=== PATIENT | male | born 1930 | race Caucasian/White ===

== ENCOUNTER 2016-07-02 12:45 | Inpatient (IN) | payer MEDICARE, BC ==
[~2016-07-02] VITALS: Ht 165.1 cm; Wt 75.9 kg
[2016-07-02] MEDS ORDERED: ATOR40TA29 PO (13:04)
[2016-07-02] MEDS ORDERED: CIPR500T24 PO (13:04)
[2016-07-02] MEDS ORDERED: ALLO300T47 PO (13:04)
[2016-07-02] MEDS ORDERED: PANT40TA2 PO (13:04)
[2016-07-02] MEDS ORDERED: QUET25TA PO (13:04)
[2016-07-02] MEDS ORDERED: DILT240T12 PO (13:04)
[2016-07-02] MEDS ORDERED: FURO-151 PO (13:04)
[2016-07-02] MEDS ORDERED: SERT25TA PO (13:04)
[2016-07-02] MEDS ORDERED: LEVO150T PO (13:04)
[2016-07-02 13:33] LABS: BASOPHILS % (AUTO) 0.4 % (0.0-2.0); EOSINOPHILS # (AUTO) 0.1 K/uL (0.0-0.7); EOSINOPHILS % (AUTO) 1.3 % (0.0-7.0); HEMATOCRIT 46.2 % (40-50); HEMOGLOBIN 15.3 G/DL (14.0-18.0); LYMPHOCYTES # (AUTO) 2.8 K/uL (20.0-40.0); LYMPHOCYTES % (AUTO) 30.7 % (20.5-51.5); MEAN CORPUSCULAR HEMOGLOBIN 29.8 UUG (27.0-31.0); MEAN CORPUSCULAR HGB CONC 33 g/dL (32.0-37.0); MEAN CORPUSCULAR VOLUME 90.2 FL (82.0-92.0); MONOCYTES # (AUTO) 0.7 K/uL (2.0-10.0); MONOCYTES % (AUTO) 7.2 % (0.0-11.0); NEUTROPHILS # (AUTO) 5.5 K/uL (1.8-8.9); NEUTROPHILS % (AUTO) 60.4 % (38.5-71.5); PLATELET COUNT (AUTO) 209 K/UL (150-450); RED BLOOD CELL COUNT(AUTO) 5.12 MIL/UL (4.7-6.1); RED CELL DISTRIBUTION WIDTH 16.5 % (11.5-14.5); WHITE BLOOD COUNT (AUTO) 9.1 K/UL (4.0-11.2)
[2016-07-02 13:36] LABS: CALCIUM 9.1 mg/dL (8.5-10.1); POTASSIUM 3.6 mmol/L (3.5-5.1)
[2016-07-02 13:37] LABS: CREATININE 2.3 mg/dL (0.6-1.3)
[2016-07-02] MEDS ORDERED: ALBUTEROL SULFATE 2.5 MG/3 ML NEBU NEB ONE ×2 (13:45→15:30)
[2016-07-02 13:48] LABS: ALBUMIN 2.9 g/dL (3.4-5.0); BILIRUBIN,DIRECT 0.2 mg/dL (0.0-0.2); BILIRUBIN,TOTAL 0.6 mg/dL (0.2-1.0); TOTAL PROTEIN, SERUM 6.9 g/dL (6.4-8.2)
[2016-07-02 13:53] LABS: LACTIC ACID 2.1 mmol/L (0.4-2.0)
[2016-07-02] MEDS ORDERED: ALBUTEROL SULFATE 2.5 MG/3 ML NEBU ONE ×2 (13:55→15:42)
[2016-07-02 13:59] LABS: TROPONIN I 0.062 ng/mL (0.00-0.056)
[2016-07-02] MEDS ORDERED: IV NORMAL SALINE 1000 ML BAG IV ONE (14:15)
[2016-07-02] MEDS ORDERED: CEFTRIAXONE 1 G in IV DEXTROSE 5% 50 ML IV ONE (14:15)
[2016-07-02] MEDS ORDERED: AZITHROMYCIN IV 500 MG in IV DEXTROSE 5% 250 ML IV ONE (14:15)
[2016-07-02] MEDS ORDERED: PIPERACILLIN SODIUM/TAZOBACTAM 3.375 G in IV DEXTROSE 5% 50 ML IV ONE (14:15)
[2016-07-02] MEDS ORDERED: AZITHROMYCIN 500 MG VIAL IV ONE (14:24)
[2016-07-02] MEDS ORDERED: CEFTRIAXONE 1 G VIAL ONE (14:24)
[2016-07-02] MEDS ORDERED: PIPERACILLIN/TAZOBACTAM/D5W 50 ML IV ONE (14:25)
[2016-07-02 16:29] VITALS: BP 108/61
[2016-07-02] MEDS ORDERED: ACETAMINOPHEN 325 MG TABLET PO PRN (17:45)
[2016-07-02] MEDS ORDERED: ZOLPIDEM 5 MG TABLET PO PRN (17:45)
[2016-07-02] MEDS ORDERED: ONDANSETRON 4 MG/2 ML VIAL IV PRN (17:45)
[2016-07-02] MEDS ORDERED: CEFTRIAXONE 1 G VIAL IM SCH (17:45)
[2016-07-02] MEDS: IPRATROPIUM BROMIDE 0.5 MG/2.5 ML NEBU NEB SCH ×2 (19:30→20:07)
[2016-07-02 20:00] VITALS: BP 110/65
[2016-07-02] MEDS: QUETIAPINE FUMARATE 25 MG TABLET PO SCH ×2 (20:04→20:19)
[2016-07-02] MEDS: ATORVASTATIN 40 MG TABLET PO SCH ×2 (20:04→20:19)
[2016-07-02] MEDS ORDERED: Z GUARD REMEDY PASTE 57 GM TUBE TOP PRN (20:15)
[2016-07-03] VITALS: BP 125/75
[2016-07-03] MEDS: IPRATROPIUM BROMIDE 0.5 MG/2.5 ML NEBU NEB SCH ×4 (01:21→19:30)
[2016-07-03 04:00] VITALS: BP 140/80
[2016-07-03] MEDS: PANTOPRAZOLE SODIUM 40 MG TABLET.DR PO SCH (06:28)
[2016-07-03] MEDS: LEVOTHYROXINE SODIUM 150 MCG TABLET PO SCH (06:28)
[2016-07-03] MEDS: ALLOPURINOL 100 MG TABLET PO SCH (08:52)
[2016-07-03] MEDS: SERTRALINE HCL 50 MG TABLET PO SCH (08:52)
[2016-07-03] MEDS: FUROSEMIDE 40 MG TABLET PO SCH (08:52)
[2016-07-03] MEDS: DILTIAZEM HCL CD 240 MG CAP.SR.24H PO SCH (08:53)
[2016-07-03] MEDS ORDERED: ALLOPURINOL 300 MG TABLET PO SCH (09:00)
[2016-07-03 09:21] LABS: EOSINOPHILS # (AUTO) 0.1 K/uL (0.0-0.7); EOSINOPHILS % (AUTO) 1.2 % (0.0-7.0); HEMATOCRIT 46.1 % (40-50); HEMOGLOBIN 15.1 G/DL (14.0-18.0); LYMPHOCYTES # (AUTO) 2.4 K/uL (20.0-40.0); LYMPHOCYTES % (AUTO) 32.6 % (20.5-51.5); MEAN CORPUSCULAR HEMOGLOBIN 29.8 UUG (27.0-31.0); MEAN CORPUSCULAR HGB CONC 33 g/dL (32.0-37.0); MONOCYTES # (AUTO) 0.4 K/uL (2.0-10.0); MONOCYTES % (AUTO) 5.3 % (0.0-11.0); NEUTROPHILS # (AUTO) 4.6 K/uL (1.8-8.9); NEUTROPHILS % (AUTO) 60.9 % (38.5-71.5); PLATELET COUNT (AUTO) 204 K/UL (150-450); RED BLOOD CELL COUNT(AUTO) 5.07 MIL/UL (4.7-6.1); RED CELL DISTRIBUTION WIDTH 16.5 % (11.5-14.5); WHITE BLOOD COUNT (AUTO) 7.5 K/UL (4.0-11.2)
[2016-07-03 09:27] LABS: ALBUMIN 2.7 g/dL (3.4-5.0); BILIRUBIN,TOTAL 0.5 mg/dL (0.2-1.0); CALCIUM 8.5 mg/dL (8.5-10.1); MAGNESIUM 1.7 mg/dL (1.8-2.4); PHOSPHOROUS 3.1 mg/dL (2.5-4.9); POTASSIUM 3.4 mmol/L (3.5-5.1); TOTAL PROTEIN, SERUM 6.6 g/dL (6.4-8.2)
[2016-07-03 09:28] LABS: CREATININE 1.9 mg/dL (0.6-1.3)
[2016-07-03] MEDS: APIXABAN 5 MG TABLET PO SCH ×2 (09:54→17:52)
[2016-07-03 11:50] LABS: *BILIRUBIN,URIN NEGATIVE (NEGATIVE); *BLOOD, URINE NEGATIVE (NEGATIVE); *CLARITY,URINE CLEAR (CLEAR); *COLOR,URINE YELLOW (YELLOW); *KETONES,URINE NEGATIVE (NEGATIVE); *PROTEIN,URINE 2+ (NEGATIVE); LEUKOCYTE ESTERASE ,URINE NEGATIVE (NEGATIVE); NITRITE, URINE NEGATIVE (NEGATIVE); PH,URINE 5.5 (5.0-8.0); UGLUCOSE NEGATIVE (NEGATIVE)
[2016-07-03 11:56] LABS: *CREATININE,URINE 72.7 mg/dL (30-125); *URINE TOTAL PROTEIN RANDOM 54.8 mg/dL (<150/24HR)
[2016-07-03 11:57] LABS: BACTERIA,URINE FEW /HPF (NONE SEEN); RBC,URINE NONE SEEN /HPF (0-3); SQUAMOUS EPITHELIAL CELL,UR FEW /HPF (NONE SEEN); WBC,URINE 0-3 /HPF (0-3)
[2016-07-03 12:02] VITALS: BP 110/66
[2016-07-03] MEDS: CEFTRIAXONE 1 G in IV DEXTROSE 5% 50 ML IV SCH (14:10)
[2016-07-03] MEDS: AZITHROMYCIN IV 500 MG in IV DEXTROSE 5% 250 ML IV SCH (15:21)
[2016-07-03 15:30] VITALS: BP 122/69
[2016-07-03] MEDS ORDERED: RIVAROXABAN 15 MG TABLET PO SCH (18:00)
[2016-07-03 20:16] VITALS: BP 122/68
[2016-07-03] MEDS: ATORVASTATIN 40 MG TABLET PO SCH (20:23)
[2016-07-03] MEDS: LACTOBACILLUS RHAMNOSUS GG 1 EACH CAPSULE PO SCH (20:23)
[2016-07-03] MEDS: QUETIAPINE FUMARATE 25 MG TABLET PO SCH (20:24)
[2016-07-04] MEDS: IPRATROPIUM BROMIDE 0.5 MG/2.5 ML NEBU NEB SCH ×4 (01:27→18:30)
[2016-07-04 04:00] VITALS: BP 127/70
[2016-07-04] MEDS: LEVOTHYROXINE SODIUM 150 MCG TABLET PO SCH (06:12)
[2016-07-04] MEDS: PANTOPRAZOLE SODIUM 40 MG TABLET.DR PO SCH (06:12)
[2016-07-04 07:12] LABS: BASOPHILS % (AUTO) 0.1 % (0.0-2.0); EOSINOPHILS # (AUTO) 0.2 K/uL (0.0-0.7); EOSINOPHILS % (AUTO) 2.6 % (0.0-7.0); HEMATOCRIT 43.8 % (40-50); HEMOGLOBIN 14.9 G/DL (14.0-18.0); LYMPHOCYTES # (AUTO) 3.1 K/uL (20.0-40.0); LYMPHOCYTES % (AUTO) 39.4 % (20.5-51.5); MEAN CORPUSCULAR HEMOGLOBIN 30.3 UUG (27.0-31.0); MEAN CORPUSCULAR HGB CONC 34 g/dL (32.0-37.0); MEAN CORPUSCULAR VOLUME 89.4 FL (82.0-92.0); MONOCYTES # (AUTO) 0.5 K/uL (2.0-10.0); MONOCYTES % (AUTO) 6.3 % (0.0-11.0); NEUTROPHILS % (AUTO) 51.6 % (38.5-71.5); PLATELET COUNT (AUTO) 195 K/UL (150-450); RED BLOOD CELL COUNT(AUTO) 4.91 MIL/UL (4.7-6.1); RED CELL DISTRIBUTION WIDTH 15.8 % (11.5-14.5); WHITE BLOOD COUNT (AUTO) 7.8 K/UL (4.0-11.2)
[2016-07-04 07:18] LABS: ALBUMIN 2.6 g/dL (3.4-5.0); BILIRUBIN,TOTAL 0.6 mg/dL (0.2-1.0); CALCIUM 8.5 mg/dL (8.5-10.1); MAGNESIUM 1.7 mg/dL (1.8-2.4); PHOSPHOROUS 2.8 mg/dL (2.5-4.9); POTASSIUM 3.5 mmol/L (3.5-5.1); TOTAL PROTEIN, SERUM 6.4 g/dL (6.4-8.2)
[2016-07-04 07:23] LABS: CREATININE 1.6 mg/dL (0.6-1.3)
[2016-07-04] MEDS: ALLOPURINOL 100 MG TABLET PO SCH (08:51)
[2016-07-04] MEDS: FUROSEMIDE 40 MG TABLET PO SCH (08:52)
[2016-07-04] MEDS: LACTOBACILLUS RHAMNOSUS GG 1 EACH CAPSULE PO SCH ×2 (08:52→20:07)
[2016-07-04] MEDS: SERTRALINE HCL 50 MG TABLET PO SCH (08:52)
[2016-07-04] MEDS: APIXABAN 5 MG TABLET PO SCH ×2 (08:53→17:09)
[2016-07-04] MEDS: DILTIAZEM HCL CD 240 MG CAP.SR.24H PO SCH (08:57)
[2016-07-04 12:00] VITALS: BP 126/74
[2016-07-04] MEDS: DILTIAZEM HCL 60 MG TABLET PO SCH ×2 (12:00→17:10)
[2016-07-04] MEDS: CEFTRIAXONE 1 G in IV DEXTROSE 5% 50 ML IV SCH (14:07)
[2016-07-04] MEDS ORDERED: MAGNESIUM OXIDE 400 MG TABLET PO ONE (14:15)
[2016-07-04] MEDS ORDERED: MAGNESIUM SULFATE/D5W 100 ML IV SCH (14:30)
[2016-07-04] MEDS: ALBUTEROL SULFATE 2.5 MG/ 0.5 ML NEBU NEB PRN ×2 (14:34→18:30)
[2016-07-04 15:04] VITALS: BP 109/63
[2016-07-04] MEDS: AZITHROMYCIN IV 500 MG in IV DEXTROSE 5% 250 ML IV SCH (16:27)
[2016-07-04 20:00] VITALS: BP 124/42
[2016-07-04] MEDS: ATORVASTATIN 40 MG TABLET PO SCH (20:07)
[2016-07-04] MEDS: QUETIAPINE FUMARATE 25 MG TABLET PO SCH (20:07)
[2016-07-05] MEDS: DILTIAZEM HCL 60 MG TABLET PO SCH ×4 (00:35→17:23)
[2016-07-05] MEDS: ALBUTEROL SULFATE 2.5 MG/ 0.5 ML NEBU NEB PRN (01:22)
[2016-07-05] MEDS: IPRATROPIUM BROMIDE 0.5 MG/2.5 ML NEBU NEB SCH ×4 (01:22→19:46)
[2016-07-05 05:28] VITALS: BP 125/52
[2016-07-05] MEDS: PANTOPRAZOLE SODIUM 40 MG TABLET.DR PO SCH (06:31)
[2016-07-05] MEDS: LEVOTHYROXINE SODIUM 150 MCG TABLET PO SCH (06:31)
[2016-07-05] MEDS: LACTOBACILLUS RHAMNOSUS GG 1 EACH CAPSULE PO SCH ×2 (08:55→21:37)
[2016-07-05] MEDS: ALLOPURINOL 100 MG TABLET PO SCH (08:55)
[2016-07-05] MEDS: SERTRALINE HCL 50 MG TABLET PO SCH (08:55)
[2016-07-05] MEDS: FUROSEMIDE 40 MG TABLET PO SCH (08:55)
[2016-07-05] MEDS: APIXABAN 5 MG TABLET PO SCH ×2 (08:55→17:23)
[2016-07-05 11:54] VITALS: BP 133/72
[2016-07-05] MEDS: CEFTRIAXONE 1 G in IV DEXTROSE 5% 50 ML IV SCH (14:12)
[2016-07-05] MEDS: AZITHROMYCIN IV 500 MG in IV DEXTROSE 5% 250 ML IV SCH (16:16)
[2016-07-05 16:33] VITALS: BP 133/69
[2016-07-05 20:00] VITALS: BP 122/45
[2016-07-05] MEDS: QUETIAPINE FUMARATE 25 MG TABLET PO SCH (21:37)
[2016-07-05] MEDS: ATORVASTATIN 40 MG TABLET PO SCH (21:37)
[2016-07-06] MEDS: DILTIAZEM HCL 60 MG TABLET PO SCH ×6 (00:45→17:15)
[2016-07-06] MEDS: ALBUTEROL SULFATE 2.5 MG/ 0.5 ML NEBU NEB PRN (01:25)
[2016-07-06] MEDS: IPRATROPIUM BROMIDE 0.5 MG/2.5 ML NEBU NEB SCH ×4 (01:25→19:23)
[2016-07-06 04:38] VITALS: BP 125/67
[2016-07-06] MEDS: LEVOTHYROXINE SODIUM 150 MCG TABLET PO SCH ×2 (06:00→06:59)
[2016-07-06] MEDS: PANTOPRAZOLE SODIUM 40 MG TABLET.DR PO SCH ×2 (06:00→06:59)
[2016-07-06 06:54] LABS: CALCIUM 8.7 mg/dL (8.5-10.1); MAGNESIUM 2.1 mg/dL (1.8-2.4); PHOSPHOROUS 3.4 mg/dL (2.5-4.9); POTASSIUM 3.5 mmol/L (3.5-5.1)
[2016-07-06 07:03] LABS: CREATININE 1.5 mg/dL (0.6-1.3)
[2016-07-06 07:19] LABS: BASOPHILS % (AUTO) 0.1 % (0.0-2.0); EOSINOPHILS # (AUTO) 0.2 K/uL (0.0-0.7); HEMATOCRIT 46.4 % (40-50); HEMOGLOBIN 15.7 G/DL (14.0-18.0); LYMPHOCYTES % (AUTO) 37.7 % (20.5-51.5); MEAN CORPUSCULAR HEMOGLOBIN 30.4 UUG (27.0-31.0); MEAN CORPUSCULAR HGB CONC 34 g/dL (32.0-37.0); MEAN CORPUSCULAR VOLUME 89.9 FL (82.0-92.0); MONOCYTES # (AUTO) 0.4 K/uL (2.0-10.0); NEUTROPHILS # (AUTO) 4.2 K/uL (1.8-8.9); NEUTROPHILS % (AUTO) 54.2 % (38.5-71.5); PLATELET COUNT (AUTO) 225 K/UL (150-450); RED BLOOD CELL COUNT(AUTO) 5.16 MIL/UL (4.7-6.1); RED CELL DISTRIBUTION WIDTH 15.8 % (11.5-14.5); WHITE BLOOD COUNT (AUTO) 7.8 K/UL (4.0-11.2)
[2016-07-06] MEDS: FUROSEMIDE 40 MG TABLET PO SCH (08:41)
[2016-07-06] MEDS: LACTOBACILLUS RHAMNOSUS GG 1 EACH CAPSULE PO SCH ×2 (08:41→20:51)
[2016-07-06] MEDS: ALLOPURINOL 100 MG TABLET PO SCH (08:41)
[2016-07-06] MEDS: SERTRALINE HCL 50 MG TABLET PO SCH (08:42)
[2016-07-06] MEDS: APIXABAN 5 MG TABLET PO SCH ×2 (08:43→17:15)
[2016-07-06 11:50] VITALS: BP 140/80
[2016-07-06] MEDS: CEFTRIAXONE 1 G in IV DEXTROSE 5% 50 ML IV SCH (13:00)
[2016-07-06] MEDS: AZITHROMYCIN 250 MG TABLET PO SCH (14:46)
[2016-07-06 16:10] VITALS: BP 130/81
[2016-07-06 20:21] VITALS: BP 118/62
[2016-07-06] MEDS: ATORVASTATIN 40 MG TABLET PO SCH (20:51)
[2016-07-06] MEDS: QUETIAPINE FUMARATE 25 MG TABLET PO SCH (20:51)
[2016-07-07] MEDS: DILTIAZEM HCL 60 MG TABLET PO SCH ×4 (00:35→17:04)
[2016-07-07] MEDS: IPRATROPIUM BROMIDE 0.5 MG/2.5 ML NEBU NEB SCH ×4 (03:25→19:17)
[2016-07-07 05:17] VITALS: BP 124/64
[2016-07-07] MEDS: PANTOPRAZOLE SODIUM 40 MG TABLET.DR PO SCH (06:03)
[2016-07-07] MEDS: LEVOTHYROXINE SODIUM 150 MCG TABLET PO SCH (06:03)
[2016-07-07 07:29] LABS: BASOPHILS # (AUTO) 0.1 K/uL (0.0-8.0); BASOPHILS % (AUTO) 0.6 % (0.0-2.0); EOSINOPHILS # (AUTO) 0.3 K/uL (0.0-0.7); EOSINOPHILS % (AUTO) 2.9 % (0.0-7.0); HEMATOCRIT 49.4 % (40-50); HEMOGLOBIN 16.3 G/DL (14.0-18.0); LYMPHOCYTES # (AUTO) 3.1 K/UL (0.8-4.8); LYMPHOCYTES % (AUTO) 33.9 % (20.5-51.5); MEAN CORPUSCULAR HEMOGLOBIN 30.1 UUG (27.0-31.0); MEAN CORPUSCULAR HGB CONC 33 g/dL (32.0-37.0); MEAN CORPUSCULAR VOLUME 91.2 FL (82.0-92.0); MONOCYTES # (AUTO) 0.6 K/UL (0.1-1.30); MONOCYTES % (AUTO) 6.1 % (0.0-11.0); NEUTROPHILS # (AUTO) 5.2 K/UL (1.8-8.9); NEUTROPHILS % (AUTO) 56.5 % (38.5-71.5); PLATELET COUNT (AUTO) 240 K/UL (150-450); RED BLOOD CELL COUNT(AUTO) 5.42 MIL/UL (4.7-6.1); RED CELL DISTRIBUTION WIDTH 15.5 % (11.5-14.5); WHITE BLOOD COUNT (AUTO) 9.3 K/UL (4.0-11.2)
[2016-07-07] MEDS: ALBUTEROL SULFATE 2.5 MG/ 0.5 ML NEBU NEB PRN (07:37)
[2016-07-07 07:38] LABS: ALBUMIN 2.8 g/dL (3.4-5.0); BILIRUBIN,TOTAL 0.6 mg/dL (0.2-1.0); CALCIUM 9.2 mg/dL (8.5-10.1); MAGNESIUM 2.1 mg/dL (1.8-2.4); PHOSPHOROUS 3.2 mg/dL (2.5-4.9)
[2016-07-07 07:39] LABS: CREATININE 1.4 mg/dL (0.6-1.3)
[2016-07-07] MEDS: LACTOBACILLUS RHAMNOSUS GG 1 EACH CAPSULE PO SCH ×2 (08:11→21:27)
[2016-07-07] MEDS: ALLOPURINOL 100 MG TABLET PO SCH (08:11)
[2016-07-07] MEDS: FUROSEMIDE 40 MG TABLET PO SCH (08:11)
[2016-07-07] MEDS: SERTRALINE HCL 50 MG TABLET PO SCH (08:12)
[2016-07-07] MEDS: APIXABAN 5 MG TABLET PO SCH ×2 (08:56→17:03)
[2016-07-07 11:09] LABS: ALBUMIN 2.9 g/dL (2.9-4.4); ALPHA-1-GLOBULIN 0.3 g/dL (0.0-0.4); BETA GLOBULIN 0.9 g/dL (0.7-1.3); GAMMA GLOBULIN 0.7 g/dL (0.4-1.8); GLOBULIN, TOTAL 2.8 g/dL (2.2-3.9); M-SPIKE Not Observed g/dL (Not Observed)
[2016-07-07 12:12] VITALS: BP 142/82
[2016-07-07] MEDS: CEFTRIAXONE 1 G in IV DEXTROSE 5% 50 ML IV SCH (13:07)
[2016-07-07 14:11] LABS: PTH, INTACT 55 pg/mL (15-65)
[2016-07-07] MEDS ORDERED: BARIUM SULFATE 148 GM SUSP.RECON PO ONE ×2 (15:00)
[2016-07-07] MEDS ORDERED: BARIUM SULFATE 240 ML ORAL.SUSP PO ONE (15:00)
[2016-07-07] MEDS: AZITHROMYCIN 250 MG TABLET PO SCH (15:04)
[2016-07-07 16:15] VITALS: BP 139/97
[2016-07-07 20:00] VITALS: BP 124/77
[2016-07-07] MEDS: QUETIAPINE FUMARATE 25 MG TABLET PO SCH (21:27)
[2016-07-07] MEDS: ATORVASTATIN 40 MG TABLET PO SCH (21:28)
[2016-07-08] MEDS: IPRATROPIUM BROMIDE 0.5 MG/2.5 ML NEBU NEB SCH ×3 (00:26→14:05)
[2016-07-08 05:50] VITALS: BP 151/94
[2016-07-08] MEDS: LEVOTHYROXINE SODIUM 150 MCG TABLET PO SCH (06:08)
[2016-07-08] MEDS: PANTOPRAZOLE SODIUM 40 MG TABLET.DR PO SCH (06:08)
[2016-07-08] MEDS: DILTIAZEM HCL 60 MG TABLET PO SCH ×3 (06:09→12:31)
[2016-07-08] MEDS ORDERED: LACT1CAP57 PO (08:11)
[2016-07-08] MEDS ORDERED: APIX5TAB PO (08:11)
[2016-07-08] MEDS: FUROSEMIDE 40 MG TABLET PO SCH (09:00)
[2016-07-08] MEDS: ALLOPURINOL 100 MG TABLET PO SCH (09:00)
[2016-07-08] MEDS: LACTOBACILLUS RHAMNOSUS GG 1 EACH CAPSULE PO SCH (09:00)
[2016-07-08] MEDS: SERTRALINE HCL 50 MG TABLET PO SCH (09:01)
[2016-07-08] MEDS: APIXABAN 5 MG TABLET PO SCH (09:06)
[2016-07-08 11:05] VITALS: BP_SYST 128
[2016-07-08 12:31] VITALS: BP 137/98
== END 2016-07-08 14:30 | DRG 177 ==
LOC: ER 12:45 → TELE 15:26 → MED 07-03 10:29
PROVIDERS: ADMIT Internal Medicine; ATTEND Internal Medicine
DX: J15.6 Pneumonia due to other Gram-negative bacteria (principal); I21.4 Non-ST elevation (NSTEMI) myocardial infarction; G92 Toxic encephalopathy; N17.0 Acute kidney failure with tubular necrosis; E44.1 Mild protein-calorie malnutrition; I50.32 Chronic diastolic (congestive) heart failure; I13.0 Hypertensive heart and chronic kidney disease with heart failure and stage 1 through stage 4 chronic kidney disease, or unspecified chronic kidney disease; I69.854 Hemiplegia and hemiparesis following other cerebrovascular disease affecting left non-dominant side; I48.92 Unspecified atrial flutter; I48.2 Chronic atrial fibrillation; K21.9 Gastro-esophageal reflux disease without esophagitis; N18.9 Chronic kidney disease, unspecified; Z79.899 Other long term (current) drug therapy; F03.90 Unspecified dementia, unspecified severity, without behavioral disturbance, psychotic disturbance, mood disturbance, and anxiety; E78.5 Hyperlipidemia, unspecified; E03.9 Hypothyroidism, unspecified; Z68.27 Body mass index [BMI] 27.0-27.9, adult; M10.9 Gout, unspecified; Z91.81 History of falling; Z86.711 Personal history of pulmonary embolism
CPT/HCPCS: 36415; 70030-TC; 71010; 74230; 76770; 83605; 83735; 83970; 84100; 84155; 84156; 84165; 84300; 84443; 85025; 85730; 87040; 92526; 92610; 92611; 93005; 93307; 94640; 97001; 97003; A4663; J0456; J0696; J2543; J3475; J3490; J3590; J7030; J7040; J7050; J7060; Q0144

== ENCOUNTER 2016-12-19 12:15 | Inpatient (IN) | payer MEDICARE, BC ==
[~2016-12-19] VITALS: Ht 182.9 cm; Wt 62.3 kg
[~2016-12-19 12:15] MED LIST: ALLO300T72 PO; APIX5TAB PO; ATOR40TA29 PO; DILT240T12 PO; FURO-151 PO; LACT1CAP57 PO; LEVO150T PO; PANT40TA2 PO; QUET25TA PO; SERT25TA PO
--- NOTE | 2016-12-19 12:30 | NUR ---
Patient is alert with eyes tracking but is non-verbal most of the times. Private caregiver is at bedside, NAD.
[2016-12-19 13:48] LABS: BASOPHILS # (AUTO) 0.1 K/uL (0.0-8.0); BASOPHILS % (AUTO) 1.2 % (0.0-2.0); EOSINOPHILS # (AUTO) 0.1 K/uL (0.0-0.7); EOSINOPHILS % (AUTO) 1.2 % (0.0-7.0); HEMATOCRIT 48.6 % (36.7-47.1); HEMOGLOBIN 16.4 g/dL (12.5-16.3); LYMPHOCYTES # (AUTO) 2.6 K/uL (20.0-40.0); LYMPHOCYTES % (AUTO) 22.3 % (20.5-51.5); MEAN CORPUSCULAR HEMOGLOBIN 30.7 uug (23.8-33.4); MEAN CORPUSCULAR HGB CONC 34 g/dL (32.5-36.3); MEAN CORPUSCULAR VOLUME 90.9 fL (73.0-96.2); MONOCYTES % (AUTO) 8.7 % (0.0-11.0); NEUTROPHILS # (AUTO) 7.8 K/uL (1.8-8.9); NEUTROPHILS % (AUTO) 66.6 % (38.5-71.5); PLATELET COUNT (AUTO) 241 K/uL (152-348); RED BLOOD CELL COUNT(AUTO) 5.35 MIL/uL (4.06-5.63); WHITE BLOOD COUNT (AUTO) 11.7 K/uL (3.6-10.2)
[2016-12-19 14:02] LABS: CARBON DIOXIDE 29 mmol/L (21-32); CHLORIDE 103 mmol/L (98-107); CREATININE 1.6 mg/dL (0.6-1.3); GLUCOSE 117 mg/dL (74-106); POTASSIUM 3.7 mmol/L (3.5-5.1); UREA NITROGEN, BLOOD 20 mg/dL (7-18)
[2016-12-19 14:20] LABS: ALANINE AMINOTRANSFERASE 34 U/L (16-63); ALKALINE PHOSPHATASE 126 U/L (50-136); ASPARTATE AMINOTRANSFERASE 22 U/L (15-37); BILIRUBIN,TOTAL 1.1 mg/dL (0.2-1.0); TOTAL PROTEIN, SERUM 7.5 g/dL (6.4-8.2)
[2016-12-19] MEDS ORDERED: FUROSEMIDE 20 MG/2 ML VIAL IV ONE (15:16)
[2016-12-19] MEDS ORDERED: FUROSEMIDE 40 MG/4 ML VIAL ONE (15:43)
--- NOTE | 2016-12-19 15:47 | NUR ---
Patient will intermittently remove his nasal cannula, prompts done
--- NOTE | 2016-12-19 16:15 | NUR ---
Patient is able to talk appropriately and can move all extremities during in & out urine catheterization- MD notified.
--- NOTE | 2016-12-19 16:30 | NUR ---
PT RECEIVED FROM ER VIA [facility] FOR CHF IN STABLE CONDITION.V/S ARE STABLE. CALLED FOR ORDERS,
[2016-12-19 16:34] LABS: *BILIRUBIN,URIN NEGATIVE (NEGATIVE); *BLOOD, URINE 1+ (NEGATIVE); *CLARITY,URINE CLEAR (CLEAR); *COLOR,URINE YELLOW (YELLOW); *KETONES,URINE NEGATIVE (NEGATIVE); *PROTEIN,URINE 1+ (NEGATIVE); *UROBILINOGEN,URINE 0.2 E.U./dl (NORMAL); LEUKOCYTE ESTERASE ,URINE NEGATIVE (NEGATIVE); NITRITE, URINE NEGATIVE (NEGATIVE); UGLUCOSE NEGATIVE (NEGATIVE)
[2016-12-19 16:40] VITALS: BP 139/81
[2016-12-19 16:48] LABS: MUCUS,URINE FEW /LPF (0-FEW); SQUAMOUS EPITHELIAL CELL,UR FEW /HPF (NONE SEEN); WBC,URINE 0-3 /HPF (0-3)
[2016-12-19 20:00] VITALS: BP 136/62
--- NOTE | 2016-12-19 20:15 | NUR ---
RECEIVED PATIENT IN BED, AWAKE, BUT NON VERBAL, LEFT LEG SWOLLEN, KEPT ELEVATED WITH PILLOW, NO SOB NO CHEST PAIN, RHYTHM A FIB AT THIS TIME. NO COUGHING NO CONGESTION NOTED, ON OXYGEN 2LITER NC FOR ASSIST, KEPT CLEAN AND DRY, CONT TO MONITOR.
[2016-12-19] MEDS ORDERED: Z GUARD REMEDY PASTE 57 GM TUBE TOP PRN (21:45)
[2016-12-19] MEDS ORDERED: ENOXAPARIN SODIUM 40 MG/0.4 ML DISP.SYRIN SQ SCH (21:45)
[2016-12-19] MEDS ORDERED: ACETAMINOPHEN 325 MG TABLET PO PRN (21:45)
[2016-12-19] MEDS ORDERED: ONDANSETRON 4 MG/2 ML VIAL IV PRN (21:45)
[2016-12-19] MEDS ORDERED: HYDROCODONE/APAP 5-325MG TABLET PO PRN (21:45)
[2016-12-19] MEDS ORDERED: BUMETANIDE INJ 6 MG in IV DEXTROSE 5% 36 ML IV ONE (21:45)
[2016-12-19] MEDS ORDERED: ZOLPIDEM 5 MG TABLET PO PRN (21:45)
[2016-12-19] MEDS ORDERED: ASPIRIN EC 81 MG TABLET.DR PO ONE (22:34)
[2016-12-19] MEDS ORDERED: BUMETANIDE 1 MG/4 ML VIAL ONE (22:36)
[2016-12-19] MEDS: ASPIRIN EC 81 MG TABLET.DR PO SCH (22:57)
[2016-12-20] VITALS: BP 112/49
[2016-12-20 04:00] VITALS: BP 127/73
[2016-12-20 04:34] LABS: BASOPHILS # (AUTO) 0.2 K/uL (0.0-8.0); BASOPHILS % (AUTO) 1.5 % (0.0-2.0); EOSINOPHILS # (AUTO) 0.1 K/uL (0.0-0.7); EOSINOPHILS % (AUTO) 1.2 % (0.0-7.0); HEMATOCRIT 47.2 % (40-50); HEMOGLOBIN 15.7 G/DL (14.0-18.0); LYMPHOCYTES % (AUTO) 29.1 % (20.5-51.5); MEAN CORPUSCULAR HEMOGLOBIN 30.3 UUG (27.0-31.0); MEAN CORPUSCULAR HGB CONC 33 g/dL (32.0-37.0); MEAN CORPUSCULAR VOLUME 90.8 FL (82.0-92.0); MONOCYTES # (AUTO) 0.8 K/UL (0.1-1.30); MONOCYTES % (AUTO) 8.3 % (0.0-11.0); NEUTROPHILS # (AUTO) 6.1 K/UL (1.8-8.9); NEUTROPHILS % (AUTO) 59.9 % (38.5-71.5); PLATELET COUNT (AUTO) 263 K/UL (150-450); RED BLOOD CELL COUNT(AUTO) 5.19 MIL/UL (4.7-6.1); WHITE BLOOD COUNT (AUTO) 10.2 K/UL (4.0-11.2)
[2016-12-20 04:56] LABS: THYROID STIMULATING HORMONE 0.314 mIU/mL (0.358-3.740)
--- NOTE | 2016-12-20 05:09 | NUR ---
PATIENT SLEPT MOST OF THE NIGHT NO SOB NO CHEST PAIN NOTED, RHYTHM ATRIAL FLUTTER 70'S CONTROL, KEPT LEGS ELEVATED WITH PILLOW, COMPRESSION STOCKINGS IN PLACE, TURN AND REPOSITION, NO COUGHING NO CHOKING NOTED, CONT TO MONITOR.
[2016-12-20 05:48] LABS: ALANINE AMINOTRANSFERASE 28 U/L (16-63); ALKALINE PHOSPHATASE 103 U/L (50-136); ASPARTATE AMINOTRANSFERASE 26 U/L (15-37); BILIRUBIN,TOTAL 1.4 mg/dL (0.2-1.0); CARBON DIOXIDE 28 mmol/L (21-32); CHLORIDE 101 mmol/L (98-107); CHOLESTEROL 188 mg/dL (<200); CREATININE 1.5 mg/dL (0.6-1.3); GLUCOSE 128 mg/dL (74-106); HDL CHOLESTEROL 67 mg/dL (40-60); MAGNESIUM 1.7 mg/dL (1.8-2.4); PHOSPHOROUS 3.6 mg/dL (2.5-4.9); POTASSIUM 3.4 mmol/L (3.5-5.1); UREA NITROGEN, BLOOD 22 mg/dL (7-18)
--- NOTE | 2016-12-20 07:32 | NUR ---
RECEIVED PATIENT IN BED, AWAKE, BUT NON VERBAL, LEFT LEG SWOLLEN, KEPT ELEVATED WITH PILLOW, NO SOB NO CHEST PAIN, RHYTHM A FIB AT THIS TIME. , ON OXYGEN 2LITER NC FOR ASSIST, KEPT CLEAN AND DRY, CONT TO MONITOR.
[2016-12-20] MEDS: LEVOTHYROXINE SODIUM 150 MCG TABLET PO SCH (07:37)
[2016-12-20] MEDS: PANTOPRAZOLE SODIUM 40 MG TABLET.DR PO SCH (07:37)
[2016-12-20] MEDS: ALLOPURINOL 300 MG TABLET PO SCH (08:11)
[2016-12-20] MEDS: ASPIRIN EC 81 MG TABLET.DR PO SCH (08:11)
[2016-12-20] MEDS: SERTRALINE HCL 50 MG TABLET PO SCH (08:11)
[2016-12-20] MEDS: DILTIAZEM HCL CD 240 MG CAP.SR.24H PO SCH (08:11)
[2016-12-20] MEDS: FUROSEMIDE 40 MG TABLET PO SCH (08:11)
[2016-12-20 10:25] LABS: TRIGLYCERIDES 84 MG/DL (30-150)
[2016-12-20 11:00] VITALS: BP 117/70
[2016-12-20] MEDS: APIXABAN 5 MG TABLET PO SCH ×2 (12:12→16:54)
[2016-12-20 15:00] VITALS: BP 124/66
[2016-12-20] MEDS ORDERED: POTASSIUM CHLORIDE 10 MEQ CAPSULE.SA PO ONE (16:45)
[2016-12-20] MEDS ORDERED: MAGNESIUM SULFATE/D5W 100 ML IV SCH (16:45)
--- NOTE | 2016-12-20 19:30 | NUR ---
RECEIVED IN BED AWAKE, NON-VERBAL. O2 2L/M VIA NC. TELE SHOWS AFIB. WILL CONTINUE TO MONITOR CLOSELY.
[2016-12-20 20:00] VITALS: BP 123/59
[2016-12-20] MEDS: QUETIAPINE FUMARATE 25 MG TABLET PO SCH (21:41)
[2016-12-21 05:57] VITALS: BP 125/62
[2016-12-21 06:18] LABS: BASOPHILS # (AUTO) 0.2 K/uL (0.0-8.0); BASOPHILS % (AUTO) 1.6 % (0.0-2.0); EOSINOPHILS # (AUTO) 0.1 K/uL (0.0-0.7); HEMOGLOBIN 15.9 G/DL (14.0-18.0); LYMPHOCYTES # (AUTO) 2.7 K/UL (0.8-4.8); MEAN CORPUSCULAR HEMOGLOBIN 30.4 UUG (27.0-31.0); MEAN CORPUSCULAR HGB CONC 33 g/dL (32.0-37.0); MEAN CORPUSCULAR VOLUME 91.9 FL (82.0-92.0); MONOCYTES # (AUTO) 1.2 K/UL (0.1-1.30); MONOCYTES % (AUTO) 8.7 % (0.0-11.0); NEUTROPHILS # (AUTO) 9.1 K/UL (1.8-8.9); NEUTROPHILS % (AUTO) 68.7 % (38.5-71.5); PLATELET COUNT (AUTO) 241 K/UL (150-450); RED BLOOD CELL COUNT(AUTO) 5.22 MIL/UL (4.7-6.1); WHITE BLOOD COUNT (AUTO) 13.3 K/UL (4.0-11.2)
--- NOTE | 2016-12-21 06:22 | NUR ---
SLEPT WELL TURNED AND REPOSITIONED. NO ACUTE DISTRESS NOTED, WILL CONTINUE TO MONITOR CLOSELY.
[2016-12-21 06:36] LABS: CARBON DIOXIDE 33 mmol/L (21-32); CHLORIDE 102 mmol/L (98-107); CREATININE 1.8 mg/dL (0.6-1.3); GLUCOSE 132 mg/dL (74-106); MAGNESIUM 1.9 mg/dL (1.8-2.4); PHOSPHOROUS 3.9 mg/dL (2.5-4.9); POTASSIUM 3.2 mmol/L (3.5-5.1); UREA NITROGEN, BLOOD 27 mg/dL (7-18)
--- NOTE | 2016-12-21 06:43 | NUR ---
SLEPT WELL, TURNED AND REPOSITION, WILL CONTINUE TO MONITOR CLOSELY.
[2016-12-21] MEDS: PANTOPRAZOLE SODIUM 40 MG TABLET.DR PO SCH (06:49)
[2016-12-21] MEDS: LEVOTHYROXINE SODIUM 150 MCG TABLET PO SCH (06:49)
--- NOTE | 2016-12-21 07:45 | NUR ---
RECEIVED PATIENT IN BED OPENS EYES WHEN NAME IS CALLED BUT IS NON VERBAL ALL NEEDS ANTICIPATED AND SATISFIED TOTALLY DEPENDENT FOR ALL ADL.ON O2 AT 2L/M BY NASAL CANULA NOT IN DISTRESS AT THIS TIME.
[2016-12-21] MEDS: ALLOPURINOL 300 MG TABLET PO SCH (08:20)
[2016-12-21] MEDS: ASPIRIN EC 81 MG TABLET.DR PO SCH (08:20)
[2016-12-21] MEDS: SERTRALINE HCL 50 MG TABLET PO SCH (08:20)
[2016-12-21] MEDS: FUROSEMIDE 40 MG TABLET PO SCH (08:20)
[2016-12-21] MEDS: DILTIAZEM HCL CD 240 MG CAP.SR.24H PO SCH (08:21)
[2016-12-21] MEDS: APIXABAN 5 MG TABLET PO SCH ×2 (08:21→17:37)
[2016-12-21] MEDS ORDERED: POTASSIUM CHLORIDE 20 MEQ TAB.PRT.SR PO ONE (10:30)
--- NOTE | 2016-12-21 11:06 | NUR ---
PATIENT NOTED TO BE COUGHING CONGESTED AND UNABLE TO CHEW HIS FOOD MD NOTIFIED WITH NEW ORDERS AND NOTED.
[2016-12-21 11:16] VITALS: BP 125/66
--- NOTE | 2016-12-21 15:00 | NUR ---
PATIENT SEEN BY THE SLT AND SHE STATED TO THICKEN ALL LIQUIDS.
[2016-12-21 15:05] VITALS: BP 111/60
--- NOTE | 2016-12-21 17:46 | NUR ---
SPOON FED EATING BETTER WITH LESS COUGHING AT THIS TIME NON VERBAL AND WILL CONTINUE TO OBSERVE.
[2016-12-21 20:00] VITALS: BP 118/57
[2016-12-21] MEDS: QUETIAPINE FUMARATE 25 MG TABLET PO SCH (20:41)
[2016-12-21] MEDS ORDERED: INFLUENZA VACCINE 2017-2018 0.5 ML DISP.SYRIN IM ONE (21:00)
--- NOTE | 2016-12-21 21:00 | NUR ---
PT RECEIVED IN BED, ASLEEP. ALERT TO SELF. DOES NOT INITIATE INTERACTION. FLAT AFFECT. V/S STABLE. IN NO ACUTE DISTRESS. NO S/S OF PAIN AT THIS TIME. IV INTACT/PATENT, HEP-LOCKED. ON 2L NC, TOLERATING WELL. SAFETY MEASURES IMPLEMENTED. CALL LIGHT WITHIN REACH.
[2016-12-21] MEDS: Z GUARD REMEDY PASTE 57 GM TUBE TOP SCH (21:21)
[2016-12-22 06:00] VITALS: BP 115/60
[2016-12-22] MEDS: LEVOTHYROXINE SODIUM 150 MCG TABLET PO SCH (06:07)
[2016-12-22] MEDS: PANTOPRAZOLE SODIUM 40 MG TABLET.DR PO SCH (06:07)
--- NOTE | 2016-12-22 06:20 | NUR ---
END OF SHIFT NOTES. PT SLEPT WELL THROUGHOUT SHIFT. IN STABLE CONDITION. IV INTACT/PATENT. HOB ELEVATED. PT TURNED Q2H. SAFETY MAINTAINED. CALL LIGHT WITHIN REACH.
[2016-12-22 06:57] LABS: ALANINE AMINOTRANSFERASE 23 U/L (16-63); ALKALINE PHOSPHATASE 91 U/L (50-136); ASPARTATE AMINOTRANSFERASE 21 U/L (15-37); BILIRUBIN,TOTAL 0.7 mg/dL (0.2-1.0); CARBON DIOXIDE 32 mmol/L (21-32); CHLORIDE 105 mmol/L (98-107); CREATININE 1.7 mg/dL (0.6-1.3); GLUCOSE 141 mg/dL (74-106); MAGNESIUM 2.1 mg/dL (1.8-2.4); PHOSPHOROUS 3.5 mg/dL (2.5-4.9); POTASSIUM 3.4 mmol/L (3.5-5.1); TOTAL PROTEIN, SERUM 6.9 g/dL (6.4-8.2); UREA NITROGEN, BLOOD 35 mg/dL (7-18)
[2016-12-22 07:02] LABS: BASOPHILS % (AUTO) 0.5 % (0.0-2.0); EOSINOPHILS # (AUTO) 0.4 K/uL (0.0-0.7); HEMATOCRIT 45.1 % (36.7-47.1); HEMOGLOBIN 15.2 g/dL (12.5-16.3); LYMPHOCYTES # (AUTO) 2.9 K/uL (20.0-40.0); MEAN CORPUSCULAR HEMOGLOBIN 30.8 uug (23.8-33.4); MEAN CORPUSCULAR HGB CONC 34 g/dL (32.5-36.3); MEAN CORPUSCULAR VOLUME 91.4 fL (73.0-96.2); MONOCYTES # (AUTO) 0.8 K/uL (2.0-10.0); MONOCYTES % (AUTO) 7.6 % (0.0-11.0); NEUTROPHILS # (AUTO) 5.9 K/uL (1.8-8.9); NEUTROPHILS % (AUTO) 58.9 % (38.5-71.5); PLATELET COUNT (AUTO) 225 K/uL (152-348); RED BLOOD CELL COUNT(AUTO) 4.93 MIL/uL (4.06-5.63)
--- NOTE | 2016-12-22 07:20 | NUR ---
PATIENT SEEN ON ROUNDS IN BED WITH EYES CLOSED ATTEMPTS TO OPEN EYES WHEN NAME IS CALLED BUT NON VERBAL ALL NEEDS ANTICIPATED AND SATISFIED TOTALLY DEPENDENT FOR ALL ADL TURNED AND REPOSITIONED Q2H WITH HEELS FLOATED.ON O2 AT 2L/M BY NASAL CANULA NOT IN DISTRESS AT THIS TIME.
[2016-12-22] MEDS ORDERED: POTASSIUM CHLORIDE 50 ML IV SCH (08:15)
[2016-12-22] MEDS: ASPIRIN EC 81 MG TABLET.DR PO SCH (08:19)
[2016-12-22] MEDS: FUROSEMIDE 40 MG TABLET PO SCH (08:19)
[2016-12-22] MEDS: SERTRALINE HCL 50 MG TABLET PO SCH (08:20)
[2016-12-22] MEDS: Z GUARD REMEDY PASTE 57 GM TUBE TOP SCH ×2 (08:21→21:00)
[2016-12-22] MEDS: DILTIAZEM HCL CD 240 MG CAP.SR.24H PO SCH (08:23)
[2016-12-22] MEDS: APIXABAN 5 MG TABLET PO SCH ×2 (08:28→16:38)
[2016-12-22] MEDS: ALLOPURINOL 100 MG TABLET PO SCH (08:29)
[2016-12-22] MEDS ORDERED: ALLOPURINOL 300 MG TABLET PO SCH (09:00)
--- NOTE | 2016-12-22 09:30 | NUR ---
POTASSIUM LEVEL IS 3.[address] PEPE WITH ORDER TO REPLACE WITH 10 MEQ AND NOTED
[2016-12-22 11:34] VITALS: BP 133/75
--- NOTE | 2016-12-22 14:00 | NUR ---
SPEECH THERAPIST HERE AND SEEN PATIENT AND STATED TO CONTINUE SAME DIET ORDER.PATIENTS APPETITE FLUCTUATES ON UP AND DOWN FLUIDS GIVEN MUCH ABLE MADE COMFORTABLE.
[2016-12-22 15:32] VITALS: BP 112/54
--- NOTE | 2016-12-22 17:54 | NUR ---
OPENS EYES WHEN NAME IS CALLED OR WHEN TOUCHED SLEEPING ON AND OFF PATIENTS PRIVATE GEOLOGICAL SCIENCE TEACHER WAS HERE AND STATED THAT PATIENT SLEEPS A LOT EVEN AT THE ASSISTED LIVING.APPETITE WAS BETTER FOR DINNER.
[2016-12-22 20:00] VITALS: BP 131/77
[2016-12-22] MEDS: QUETIAPINE FUMARATE 25 MG TABLET PO SCH (20:59)
[2016-12-23 04:58] VITALS: BP 130/71
[2016-12-23] MEDS: LEVOTHYROXINE SODIUM 150 MCG TABLET PO SCH (06:01)
[2016-12-23] MEDS: PANTOPRAZOLE SODIUM 40 MG TABLET.DR PO SCH (06:01)
--- NOTE | 2016-12-23 06:30 | NUR ---
PT SLEPT WELL, IN NO ACUTE DISTRESS. ASPIRATION PRECAUTION. PT KEPT CLEAN/DRY, REPOSITIONED FOR COMFORT, HEELS OFFLOADED. BED ALARM ON, WILL CONTINUE TO MONITOR.
[2016-12-23 06:52] LABS: CARBON DIOXIDE 36 mmol/L (21-32); CHLORIDE 105 mmol/L (98-107); CREATININE 1.7 mg/dL (0.6-1.3); GLUCOSE 151 mg/dL (74-106); PHOSPHOROUS 3.6 mg/dL (2.5-4.9); POTASSIUM 3.5 mmol/L (3.5-5.1); UREA NITROGEN, BLOOD 32 mg/dL (7-18)
[2016-12-23 06:54] LABS: BASOPHILS % (AUTO) 0.1 % (0.0-2.0); EOSINOPHILS # (AUTO) 0.2 K/uL (0.0-0.7); EOSINOPHILS % (AUTO) 1.9 % (0.0-7.0); HEMATOCRIT 48.4 % (40-50); HEMOGLOBIN 15.8 G/DL (14.0-18.0); LYMPHOCYTES # (AUTO) 1.9 K/UL (0.8-4.8); LYMPHOCYTES % (AUTO) 16.6 % (20.5-51.5); MEAN CORPUSCULAR HEMOGLOBIN 30.2 UUG (27.0-31.0); MEAN CORPUSCULAR HGB CONC 33 g/dL (32.0-37.0); MEAN CORPUSCULAR VOLUME 92.6 FL (82.0-92.0); MONOCYTES # (AUTO) 0.6 K/UL (0.1-1.30); MONOCYTES % (AUTO) 5.3 % (0.0-11.0); NEUTROPHILS # (AUTO) 8.8 K/UL (1.8-8.9); NEUTROPHILS % (AUTO) 76.1 % (38.5-71.5); PLATELET COUNT (AUTO) 269 K/UL (150-450); RED BLOOD CELL COUNT(AUTO) 5.23 MIL/UL (4.7-6.1); WHITE BLOOD COUNT (AUTO) 11.5 K/UL (4.0-11.2)
--- NOTE | 2016-12-23 07:10 | NUR ---
Received report from overnight associate nurse, patient in bed awake, no evidence of distress noted. bed in low position, side rails up x2.
[2016-12-23] MEDS: FUROSEMIDE 40 MG TABLET PO SCH (08:36)
[2016-12-23] MEDS: ASPIRIN EC 81 MG TABLET.DR PO SCH (08:36)
[2016-12-23] MEDS: SERTRALINE HCL 50 MG TABLET PO SCH (08:36)
[2016-12-23] MEDS: ALLOPURINOL 100 MG TABLET PO SCH (08:37)
[2016-12-23] MEDS: DILTIAZEM HCL CD 240 MG CAP.SR.24H PO SCH (08:37)
[2016-12-23] MEDS: Z GUARD REMEDY PASTE 57 GM TUBE TOP SCH (08:38)
[2016-12-23] MEDS: APIXABAN 5 MG TABLET PO SCH ×2 (08:38→16:14)
[2016-12-23 11:28] VITALS: BP 122/71
[2016-12-23] MEDS ORDERED: ASPI-618 PO (12:46)
[2016-12-23] MEDS ORDERED: LEVO125T8 PO (12:46)
[2016-12-23] MEDS ORDERED: ALLO100T PO (12:46)
[2016-12-23 15:32] VITALS: BP 115/62
[2016-12-23] MEDS ORDERED: INFLUENZA VACCINE 2017-2018 0.5 ML DISP.SYRIN IM ONE (15:45)
--- NOTE | 2016-12-23 16:45 | NUR ---
Patient was prepared for transfer, IV removed from patient's arm, all belongings and prescriptions sent with patient and faxed to [facility]. Patient's notified of the transfer via ambulance.
[2017-01-03] MEDS ORDERED: ASPI81TA31 NG (09:15)
[2017-01-03] MEDS ORDERED: NUTR250L61 GT (09:15)
[2017-01-03] MEDS ORDERED: MENT71OI TOP (09:15)
== END 2016-12-23 17:55 | disposition home health service (06) | DRG 291 ==
LOC: ER 12:15 → TELE 16:10 → MED 12-20 13:02
PROVIDERS: ADMIT Nurse Practitioner Acute Care; ATTEND Nurse Practitioner Acute Care
DX: I13.0 Hypertensive heart and chronic kidney disease with heart failure and stage 1 through stage 4 chronic kidney disease, or unspecified chronic kidney disease (principal); G93.40 Encephalopathy, unspecified; N17.0 Acute kidney failure with tubular necrosis; N18.4 Chronic kidney disease, stage 4 (severe); D68.59 Other primary thrombophilia; I27.20 Pulmonary hypertension, unspecified; R53.2 Functional quadriplegia; I48.91 Unspecified atrial fibrillation; F03.90 Unspecified dementia, unspecified severity, without behavioral disturbance, psychotic disturbance, mood disturbance, and anxiety; R31.29 Other microscopic hematuria; I50.33 Acute on chronic diastolic (congestive) heart failure; E03.9 Hypothyroidism, unspecified; E78.5 Hyperlipidemia, unspecified; K21.9 Gastro-esophageal reflux disease without esophagitis; I73.9 Peripheral vascular disease, unspecified; F32.9 Major depressive disorder, single episode, unspecified; F41.9 Anxiety disorder, unspecified; G47.00 Insomnia, unspecified; I25.10 Atherosclerotic heart disease of native coronary artery without angina pectoris; M81.0 Age-related osteoporosis without current pathological fracture; Z79.01 Long term (current) use of anticoagulants; Z79.899 Other long term (current) drug therapy; Z86.711 Personal history of pulmonary embolism; Z86.73 Personal history of transient ischemic attack (TIA), and cerebral infarction without residual deficits; K59.09 Other constipation; N40.0 Benign prostatic hyperplasia without lower urinary tract symptoms; M19.90 Unspecified osteoarthritis, unspecified site; M10.9 Gout, unspecified; R59.0 Localized enlarged lymph nodes; Z91.81 History of falling
CPT/HCPCS: 36415; 70030-TC; 71010; 83735; 84100; 84443; 85025; 85610; 85651; 90686; 92526; 92610; 93005; A4663; C1758; J1940; J3475; J3480; J3490; J7050; J7060

== ENCOUNTER 2016-12-27 19:00 | Inpatient (IN) | payer MEDICARE, BC ==
[2016-12-27] VITALS (8 sets, daily range): BP systolic 90–148; BP diastolic 36–79
[~2016-12-27] VITALS: Ht 175.3 cm; Wt 79.4 kg
[~2016-12-27 19:00] MED LIST changes: +ALLO100T PO; -ALLO300T72 PO; +ASPI-618 PO; -ATOR40TA29 PO; -LACT1CAP57 PO; +LEVO125T8 PO; -LEVO150T PO
--- NOTE | 2016-12-27 19:16 | NUR ---
PT IS IN ROOM #1A. DR CRAMER EVALUATED THE PT. REPORT GIVEN TO PRATIK CONSTANTINO.
--- NOTE | 2016-12-27 19:20 | NUR ---
PT BIB AMBULANCE IN RESPIRATORY DISTRESS. SEE TRIAGE ASSESSMENT FOR VS.PATIENT INTUBATED BY DR. CRAMER.
--- NOTE | 2016-12-27 19:28 | NUR ---
Call placed to [facility] Nephrology, Dr. Hollis will be paged.
--- NOTE | 2016-12-27 19:44 | NUR ---
JOSE speaking with Dr. Hollis
[2016-12-27] MEDS ORDERED: VANCOMYCIN IV 1,000 MG in IV DEXTROSE 5% 250 ML IV ONE (19:45)
[2016-12-27] MEDS ORDERED: ETOMIDATE 20 MG/10 ML VIAL IV ONE (19:45)
[2016-12-27] MEDS ORDERED: METRONIDAZOLE 500 MG/NS 100ML 100 ML IV ONE ×2 (19:45→19:59)
[2016-12-27] MEDS ORDERED: SUCCINYLCHOLINE CHLORIDE 200 MG/10 ML VIAL IV ONE (19:45)
[2016-12-27] MEDS ORDERED: CEFTAZIDIME 1 G in IV DEXTROSE 5% 50 ML IV ONE (19:45)
[2016-12-27] MEDS ORDERED: CEFTAZIDIME 1 G VIAL ONE (20:06)
[2016-12-27] MEDS ORDERED: VANCOMYCIN 1000 MG VIAL ONE (20:09)
--- NOTE | 2016-12-27 20:11 | NUR ---
LEVOPHED STARTED AT 2MCG/MIN.
[2016-12-27] MEDS ORDERED: NOREPINEPHRINE BITARTRATE 4 MG/4 ML VIAL IV ONE (20:14)
[2016-12-27] MEDS ORDERED: PROPOFOL 100 ML IV PRN ×2 (20:15→23:30)
[2016-12-27] MEDS ORDERED: NOREPINEPHRINE BITARTRATE 8 MG in IV DEXTROSE 5% 500 ML IV ONE (20:15)
[2016-12-27 20:19] LABS: BASOPHILS # (AUTO) 0.1 K/uL (0.0-8.0); BASOPHILS % (AUTO) 0.4 % (0.0-2.0); HEMATOCRIT 51.2 % (40-50); HEMOGLOBIN 16.6 G/DL (14.0-18.0); LYMPHOCYTES # (AUTO) 2.5 K/UL (0.8-4.8); LYMPHOCYTES % (AUTO) 11.1 % (20.5-51.5); MEAN CORPUSCULAR HEMOGLOBIN 30.5 UUG (27.0-31.0); MEAN CORPUSCULAR HGB CONC 32 g/dL (32.0-37.0); MEAN CORPUSCULAR VOLUME 94.4 FL (82.0-92.0); MONOCYTES # (AUTO) 1.1 K/UL (0.1-1.30); MONOCYTES % (AUTO) 4.7 % (0.0-11.0); NEUTROPHILS # (AUTO) 18.9 K/UL (1.8-8.9); NEUTROPHILS % (AUTO) 83.8 % (38.5-71.5); PLATELET COUNT (AUTO) 296 K/UL (150-450); RED BLOOD CELL COUNT(AUTO) 5.42 MIL/UL (4.7-6.1); WHITE BLOOD COUNT (AUTO) 22.6 K/UL (4.0-11.2)
[2016-12-27 20:22] LABS: CARBON DIOXIDE 27 mmol/L (21-32); CHLORIDE 108 mmol/L (98-107); CREATININE 2.5 mg/dL (0.6-1.3); POTASSIUM 3.5 mmol/L (3.5-5.1); UREA NITROGEN, BLOOD 48 mg/dL (7-18)
[2016-12-27 20:25] LABS: GLUCOSE 303 mg/dL (74-106)
[2016-12-27] MEDS ORDERED: PROPOFOL 200 MG/20 ML BOTTLE ONE (20:30)
[2016-12-27 20:34] LABS: ALANINE AMINOTRANSFERASE 92 U/L (16-63); ALKALINE PHOSPHATASE 109 U/L (50-136); ASPARTATE AMINOTRANSFERASE 87 U/L (15-37); BILIRUBIN,DIRECT 0.3 mg/dL (0.0-0.2); BILIRUBIN,TOTAL 0.9 mg/dL (0.2-1.0); TOTAL PROTEIN, SERUM 7.9 g/dL (6.4-8.2)
[2016-12-27 20:36] LABS: BAND % (MANUAL) 22 % (0-10); LYMPHOCYTES % (MANUAL) 18 % (20-40); MONOCYTES % (MANUAL) 5 % (2-10); MYELOCYTES % 1 % (0-0); NEUTROPHILS % (MANUAL) 54 % (42-75)
--- NOTE | 2016-12-27 20:40 | NUR ---
Pt. admitted to CCU , under care of Dr. ZA Argueta List completed.
--- NOTE | 2016-12-27 20:40 | NUR ---
LACTIC ACID CRITICAL VALUE. DR. CRAMER NOTIFIFED. NO FLUID ORDERS RECEIVED.
[2016-12-27 20:55] LABS: ABG BASE EXCESS -4.1 mmol/L; ABG HCO3 19.2 mmol/L; ABG PCO2 31.1 mmHg (35.0-45.0); ABG PH 7.409 (7.350-7.450); ABG PO2 116.9 mmHg (75.0-100.0); ABG SITE RIGHT FEMORAL; ABG TOTAL HEMOGLOBIN 15.9 G/dL (13.5-18.0); COHb 1.3 % (0.5-1.5); MetHb 0.2 % (0.0-1.5); O2Hb 97.3 % (94.0-97.0); VENT MODE VENT - A/C; VT, ABG 600 mL
--- NOTE | 2016-12-27 21:23 | NUR ---
PATIENT IS WAKING UP, PULLING ON LINES AND TUBES. PROPOFOL INFUSION STARTED.
[2016-12-27] MEDS ORDERED: PROPOFOL 100 ML ONE (21:29)
--- NOTE | 2016-12-27 22:00 | NUR ---
Received patient to CCU#2; via gurney ( ACLS available) with ETT on vent (settings as ordered). IV infusiions of Diprivan & Norepinephrine via pumps.
--- NOTE | 2016-12-27 22:42 | NUR ---
Pt. admitted to CCU, under care of Dr. Andrade Belongs List completed
--- NOTE | 2016-12-27 23:05 | NUR ---
PT RECEIVED ON MIRANDA VENTILATOR WITH CURRENT SETTINGS OF AC 20, VT 600, PEEP +5, 100%. PT TOLERATING CURRENT SETTINGS AT THIS TIME. NO CHANGES MADE. WILL TITRATE FIO2 NEEDED. VENT CHECK DONE. ALARMS CHECKED, ARE ON AND AUDIBLE. PT IS ORALLY INTUBATED WITH 7.5 ETT AT APPROX. 23CM LIP LINE. ETT IS PATENT AND SECURED WITH ANCHOR FAST. ORAL CARE DONE. LAVAGE WITH COLD SALINE/SUCTION DONE. SUCTIONED SMALL AMOUNT OF BLOOD-TINGED SECRETIONS. PT SHOWING NO S/S OF RESPIRATORY DISTRESS AT THIS TIME. AMBU BAG AT BEDSIDE. WILL CONTINUE TO MONITOR THROUGHOUT SHIFT.
[2016-12-27] MEDS: FUROSEMIDE 40 MG/4 ML VIAL IV SCH (23:30)
--- NOTE | 2016-12-27 23:30 | NUR ---
Patients wayne FORRESTER at bedside. Signed consent for central line.
[2016-12-27] MEDS ORDERED: FUROSEMIDE 40 MG/4 ML VIAL ONE (23:43)
[2016-12-28] VITALS (88 sets, daily range): BP systolic 82–140; BP diastolic 44–93
[2016-12-28] MEDS ORDERED: FLUCONAZOLE 200 MG/100 ML PIGGYBACK ONE (00:50)
--- NOTE | 2016-12-28 02:50 | NUR ---
Bedside IV TLC inserted by Dr Osei.
--- NOTE | 2016-12-28 03:30 | NUR ---
Note to Pharmacy: One vial of Norepinephrine 4 mg broke & wasted.
[2016-12-28] MEDS ORDERED: NOREPINEPHRINE BITARTRATE 4 MG/4 ML VIAL IV ONE ×2 (03:39→03:45)
[2016-12-28 05:18] LABS: BASOPHILS % (AUTO) 0.1 % (0.0-2.0); HEMATOCRIT 46.2 % (40-50); HEMOGLOBIN 15.3 G/DL (14.0-18.0); LYMPHOCYTES # (AUTO) 3.2 K/UL (0.8-4.8); LYMPHOCYTES % (AUTO) 17.1 % (20.5-51.5); MEAN CORPUSCULAR HEMOGLOBIN 30.9 UUG (27.0-31.0); MEAN CORPUSCULAR HGB CONC 33 g/dL (32.0-37.0); MEAN CORPUSCULAR VOLUME 93.3 FL (82.0-92.0); MONOCYTES # (AUTO) 0.6 K/UL (0.1-1.30); MONOCYTES % (AUTO) 3.2 % (0.0-11.0); NEUTROPHILS # (AUTO) 14.7 K/UL (1.8-8.9); NEUTROPHILS % (AUTO) 79.6 % (38.5-71.5); PLATELET COUNT (AUTO) 309 K/UL (150-450); RED BLOOD CELL COUNT(AUTO) 4.95 MIL/UL (4.7-6.1); WHITE BLOOD COUNT (AUTO) 18.5 K/UL (4.0-11.2)
[2016-12-28 05:38] LABS: CARBON DIOXIDE 27 mmol/L (21-32); CHLORIDE 108 mmol/L (98-107); CREATININE 3.1 mg/dL (0.6-1.3); GLUCOSE 200 mg/dL (74-106); MAGNESIUM 1.6 mg/dL (1.8-2.4); PHOSPHOROUS 2.9 mg/dL (2.5-4.9); POTASSIUM 3.4 mmol/L (3.5-5.1); UREA NITROGEN, BLOOD 56 mg/dL (7-18)
[2016-12-28] MEDS ORDERED: PROPOFOL 100 ML ONE (06:46)
[2016-12-28 07:41] LABS: ABG BASE EXCESS -3.9 mmol/L; ABG HCO3 18.1 mmol/L; ABG PCO2 26.4 mmHg (35.0-45.0); ABG PH 7.454 (7.350-7.450); ABG SITE LEFT RADIAL; ABG TOTAL HEMOGLOBIN 16.3 G/dL (13.5-18.0); COHb 0.8 % (0.5-1.5); MetHb 0.3 % (0.0-1.5); O2Hb 97.5 % (94.0-97.0)
[2016-12-28] MEDS ORDERED: ALLO100T PO (07:42)
[2016-12-28] MEDS ORDERED: APIX2.5T PO (07:43)
[2016-12-28] MEDS ORDERED: ASPI81TA31 PO (07:44)
[2016-12-28] MEDS ORDERED: ACETAMINOPHEN 325 MG TABLET PO PRN (07:45)
[2016-12-28] MEDS ORDERED: ONDANSETRON 4 MG/2 ML VIAL IV PRN (07:45)
[2016-12-28] MEDS ORDERED: DOSING BY PHARMACY-MD TO SPECIFY MED/ROUTE XX PRN (08:00)
--- NOTE | 2016-12-28 08:06 | NUR ---
Dr. Hansen pulmonary services in the unit to examine patient; full report given see orders.
[2016-12-28] MEDS: PROPOFOL 100 ML IV PRN ×3 (08:28→19:50)
[2016-12-28] MEDS: PIPERACILLIN/TAZOBACTAM/D5W 2.25 G in PREMIXED 1 EACH IV SCH ×3 (08:41→22:06)
[2016-12-28] MEDS: NOREPINEPHRINE BITARTRATE 8 MG in IV DEXTROSE 5% 500 ML IV PRN (08:41)
[2016-12-28 08:43] LABS: *BLOOD, URINE 3+ (NEGATIVE); *CLARITY,URINE CLOUDY (CLEAR); *COLOR,URINE YELLOW (YELLOW); *KETONES,URINE NEGATIVE (NEGATIVE); *PROTEIN,URINE 2+ (NEGATIVE); LEUKOCYTE ESTERASE ,URINE NEGATIVE (NEGATIVE); NITRITE, URINE NEGATIVE (NEGATIVE); PH,URINE 5.5 (5.0-8.0); UGLUCOSE TRACE (NEGATIVE)
[2016-12-28 08:45] LABS: *BILIRUBIN,URIN 1+ (NEGATIVE)
[2016-12-28] MEDS: FUROSEMIDE 40 MG/4 ML VIAL IV SCH (08:58)
[2016-12-28] MEDS ORDERED: PANTOPRAZOLE SODIUM 40 MG VIAL IV SCH (09:00)
[2016-12-28] MEDS ORDERED: HEPARIN SODIUM,PORCINE 10,000 UNITS/10 ML VIAL INJ SCH (09:00)
[2016-12-28] MEDS ORDERED: HEPARIN SODIUM,PORCINE 5,000 UNITS/ML VIAL SQ SCH (09:00)
[2016-12-28] MEDS: FAMOTIDINE. 20 MG/2 ML VIAL IV SCH (09:07)
[2016-12-28] MEDS ORDERED: IV NS 1000 ML 1,000 ML IV PRN (09:15)
--- NOTE | 2016-12-28 09:20 | NUR ---
Dr. Willoughby in the unit to examine patient; report given.
[2016-12-28] MEDS ORDERED: MAGNESIUM SULFATE/D5W 100 ML IV SCH (09:30)
[2016-12-28 09:33] LABS: BACTERIA,URINE MODERATE /HPF (NONE SEEN); RBC,URINE 80-100 /HPF (0-3); SQUAMOUS EPITHELIAL CELL,UR FEW /HPF (NONE SEEN)
[2016-12-28] MEDS ORDERED: ASPIRIN 81 MG TAB.CHEW PO SCH (11:15)
[2016-12-28] MEDS ORDERED: IV NS 1000 ML 1,000 ML IV ONE (11:30)
--- NOTE | 2016-12-28 11:45 | NUR ---
Dr. Pinon cardiology consult in the unit to examine patient; report given orders received and carried, see orders history.
[2016-12-28] MEDS: IV NS 1000 ML 1,000 ML IV PRN ×2 (12:13→22:10)
[2016-12-28] MEDS: ASPIRIN 300 MG RECTAL SUPP RC SCH (12:18)
--- NOTE | 2016-12-28 12:30 | NUR ---
Echocardiogram tech at bedside.
[2016-12-28] MEDS ORDERED: SUCCINYLCHOLINE CHLORIDE 200 MG/10 ML VIAL IV ONE (14:41)
[2016-12-28] MEDS ORDERED: ETOMIDATE 20 MG/10 ML VIAL IV ONE (14:41)
--- NOTE | 2016-12-28 17:32 | NUR ---
RECEIVED PATIENT INTUBATED WITH ET TUBE SIZE 7.5, TAPED AT APPROXIMATELY 23 CM @ R-LIP. AWAKE BUT SEDATED. SUCTIONED FOR MODERATE AMOUNT OF BLOODY SECRETIONS. CHANGED HME. ABG DONE WITH RESULT SEEN BY DR. ORTIZ. RR WAS DECREASED TO [address] ORTIZ'S ORDER. NEW VENT SETTINGS ARE, AC 15, VT 600, PEEP 5 AND FIO2 60%. PT IS STABLE AT THIS TIME.
--- NOTE | 2016-12-28 19:12 | NUR ---
Received pt orally intubated with 7.5 ETT~22cm at lip line, on Juan vent with the following settings of AC-15, Vt-600, PEEP+5, FIO2-60%. No s/s of respiratory distress noted. Airway care done, pt responded to physical stimuli. Resus. bag at bedside. Vent and alarms on and audible.
--- NOTE | 2016-12-28 20:00 | NUR ---
Sedated on Diprivan drip. Comfortable on current vent settings. Remains Levophed-dependent, goal to titrate med to keep SBP >90 or MAP >65. Noted improved urine output however urine color pink/red. Will monitor closely. Nursing comfort measures observed at all times. Turned/positioned q 2hr. HOB up as tolerated as BP allows. Please see CCU flowsheet for full assessment and clinical data.
[2016-12-28] MEDS: ATORVASTATIN 20 MG TABLET PO SCH (21:00)
--- NOTE | 2016-12-28 21:00 | NUR ---
Call placed to Dr. Willoughby (Lvn Lpn) for noted gross hematuria; MD to return call.
--- NOTE | 2016-12-28 21:25 | NUR ---
Dr. Willoughby returned call and received order to DC Heparin, carried out. For closer observation.
[2016-12-29] VITALS (64 sets, daily range): BP systolic 101–144; BP diastolic 55–98
[2016-12-29] MEDS: NOREPINEPHRINE BITARTRATE 8 MG in IV DEXTROSE 5% 500 ML IV PRN (00:45)
--- NOTE | 2016-12-29 04:00 | NUR ---
Actively weaning/titrating down Levophed drip. Continues to have hematuria. Also bleeding at right femoral IV insertion site, dressing changed twice this shift. Continue to observe.
[2016-12-29 04:55] LABS: BASOPHILS # (AUTO) 0.2 K/uL (0.0-8.0); BASOPHILS % (AUTO) 1.2 % (0.0-2.0); HEMATOCRIT 41.3 % (40-50); HEMOGLOBIN 12.9 G/DL (14.0-18.0); LYMPHOCYTES # (AUTO) 2.9 K/UL (0.8-4.8); LYMPHOCYTES % (AUTO) 15.5 % (20.5-51.5); MEAN CORPUSCULAR HEMOGLOBIN 29.1 UUG (27.0-31.0); MEAN CORPUSCULAR HGB CONC 31 g/dL (32.0-37.0); MEAN CORPUSCULAR VOLUME 92.9 FL (82.0-92.0); MONOCYTES % (AUTO) 5.1 % (0.0-11.0); NEUTROPHILS # (AUTO) 14.9 K/UL (1.8-8.9); NEUTROPHILS % (AUTO) 78.2 % (38.5-71.5); PLATELET COUNT (AUTO) 270 K/UL (150-450); RED BLOOD CELL COUNT(AUTO) 4.45 MIL/UL (4.7-6.1)
[2016-12-29 05:12] LABS: ALANINE AMINOTRANSFERASE 25 U/L (16-63); ALKALINE PHOSPHATASE 64 U/L (50-136); ASPARTATE AMINOTRANSFERASE 17 U/L (15-37); BILIRUBIN,TOTAL 0.7 mg/dL (0.2-1.0); CARBON DIOXIDE 28 mmol/L (21-32); CHLORIDE 112 mmol/L (98-107); CREATININE 2.7 mg/dL (0.6-1.3); GLUCOSE 153 mg/dL (74-106); MAGNESIUM 1.9 mg/dL (1.8-2.4); PHOSPHOROUS 3.7 mg/dL (2.5-4.9); POTASSIUM 3.2 mmol/L (3.5-5.1); UREA NITROGEN, BLOOD 58 mg/dL (7-18)
[2016-12-29] MEDS: PROPOFOL 100 ML IV PRN (05:37)
[2016-12-29] MEDS: PIPERACILLIN/TAZOBACTAM/D5W 2.25 G in PREMIXED 1 EACH IV SCH ×3 (05:37→21:32)
--- NOTE | 2016-12-29 06:00 | NUR ---
BMs soft formed brown stools with almost every turn/position to sides. Kept clean and dry at all times. With sedation vacation, pt took a while to barely awaken. Diprivan titrating down. Please see CCU flowshhet, IV spreadsheet for trends and clinical data. HOB up per VAP protocol.
--- NOTE | 2016-12-29 06:50 | NUR ---
Pt received in semi conde position, and is on Continuous mechanical ventilation via 7.5 ETT secured at 23cm lip line. Pt is on Juan vent with ordered settings of A/C-15, VT-600, PEEP+5, FIO2-60%. Pt tolerating vent settings well. SpO2-99% Sxn'd for small amts of secretions. Good skin integrity noted around placement of Hiller-Fast. ETT moved from Right to Left side of mouth. No signs or symptoms of respiratory distress noted. Ventilator plugged into red emergency outlet. Bag/valve/mask at bedside. Will continue to monitor.
[2016-12-29 07:21] LABS: ABG BASE EXCESS 0.1 mmol/L; ABG PH 7.475 (7.350-7.450); ABG PO2 142.7 mmHg (75.0-100.0); ABG SITE RIGHT BRACHIAL; ABG TOTAL HEMOGLOBIN 12.5 G/dL (13.5-18.0); COHb 0.8 % (0.5-1.5); MetHb 0.4 % (0.0-1.5); O2Hb 98.1 % (94.0-97.0); VENT MODE VENT - A/C; VT, ABG 600 mL
--- NOTE | 2016-12-29 08:00 | NUR ---
Dr. Hansen in the unit to examine patient; report given see orders hx.. Addendum: 12/29/16 at 1054 by JAZMIN CASTELLON RN Orders carried out by RT Lea see Rt notes.
[2016-12-29] MEDS: ASPIRIN 300 MG RECTAL SUPP RC SCH (08:19)
[2016-12-29] MEDS: FAMOTIDINE. 20 MG/2 ML VIAL IV SCH (08:19)
--- NOTE | 2016-12-29 09:00 | NUR ---
Decreased Ventilator respiratory rate to 12 per MD orders. Also, decreased FIO2 to 50% per MD order for titration. CADEN Casas notified.
[2016-12-29] MEDS: IV NS 1000 ML 1,000 ML IV PRN (09:33)
--- NOTE | 2016-12-29 10:58 | NUR ---
Arjun Torres in to discuss plan of feeding with family who remains at bedside. Addendum: 12/29/16 at 1303 by JAZMIN CASTELLON RN note intended for another patient, user error
--- NOTE | 2016-12-29 13:03 | NUR ---
Dr. Pinon in the unit to examine patient; full report given. Orders to decrease fluid down to 50cc/hr.
--- NOTE | 2016-12-29 16:30 | NUR ---
Dr. liu in the unit to examine patient; report given; see orders.
[2016-12-29] MEDS ORDERED: MORPHINE SULFATE 2 MG/1 ML DISP.SYRIN IV PRN (16:45)
--- NOTE | 2016-12-29 19:27 | NUR ---
Pt received on continuous mechanical ventilation on Juan vent with current settings of AC 12, VT 600, Peep +5, FiO2 50%. Pt is orally intubated with a 7.5 ETT secured with anchor fast at approximately 23cm at the lip line. No signs of respiratory distress noted at this time, pt tolerating vent settings well. Saturation is 98%. Oral care done. Suctioned pt with small amount of pale-whitish secretions. ETT moved from left side to right side of mouth. Vent alarms functioning and audible. Will continue to monitor pt throughout shift.
--- NOTE | 2016-12-29 20:00 | NUR ---
Remains intubated on vent. Comfortable on current vent settings. Planned initial CPAP trial in AM. Off Diprivan drip and pt lethargic, spontaneous eye opening without focus or track. Does not follow commands. Also off Levophed and noted VS stable. No noted hematuria. Turned/positioned q 2hr and PRN. HOB up elevated/ oral care per VAP protocol. Seen and evaluated by ID, condition report given. Please see CCU flowsheet for full assessment and clinical data.
[2016-12-29] MEDS: MORPHINE SULFATE 4 MG/1 ML DISP.SYRIN IV PRN (20:13)
[2016-12-29] MEDS: ATORVASTATIN 20 MG TABLET PO SCH (20:14)
[2016-12-30] VITALS (32 sets, daily range): BP systolic 125–166; BP diastolic 67–106
[2016-12-30] MEDS: IV NS 1000 ML 1,000 ML IV PRN (03:00)
--- NOTE | 2016-12-30 03:22 | NUR ---
Titrated FiO2 to 40% per titration order to keep saturation > 94%. Saturation is 99%, no signs of respiratory distress noted at this time. CADEN vieira.
[2016-12-30 05:05] LABS: BASOPHILS % (AUTO) 0.2 % (0.0-2.0); EOSINOPHILS # (AUTO) 0.1 K/uL (0.0-0.7); EOSINOPHILS % (AUTO) 0.4 % (0.0-7.0); HEMATOCRIT 39.7 % (40-50); HEMOGLOBIN 12.9 G/DL (14.0-18.0); LYMPHOCYTES # (AUTO) 2.3 K/UL (0.8-4.8); LYMPHOCYTES % (AUTO) 15.1 % (20.5-51.5); MEAN CORPUSCULAR HEMOGLOBIN 29.6 UUG (27.0-31.0); MEAN CORPUSCULAR HGB CONC 32 g/dL (32.0-37.0); MEAN CORPUSCULAR VOLUME 91.6 FL (82.0-92.0); MONOCYTES # (AUTO) 0.5 K/UL (0.1-1.30); MONOCYTES % (AUTO) 3.2 % (0.0-11.0); NEUTROPHILS # (AUTO) 12.4 K/UL (1.8-8.9); NEUTROPHILS % (AUTO) 81.1 % (38.5-71.5); PLATELET COUNT (AUTO) 225 K/UL (150-450); RED BLOOD CELL COUNT(AUTO) 4.34 MIL/UL (4.7-6.1); WHITE BLOOD COUNT (AUTO) 15.3 K/UL (4.0-11.2)
[2016-12-30 05:08] LABS: ALANINE AMINOTRANSFERASE 34 U/L (16-63); ALKALINE PHOSPHATASE 70 U/L (50-136); ASPARTATE AMINOTRANSFERASE 23 U/L (15-37); BILIRUBIN,TOTAL 0.6 mg/dL (0.2-1.0); CARBON DIOXIDE 30 mmol/L (21-32); CHLORIDE 116 mmol/L (98-107); CREATININE 2.5 mg/dL (0.6-1.3); GLUCOSE 131 mg/dL (74-106); MAGNESIUM 2.2 mg/dL (1.8-2.4); PHOSPHOROUS 4.9 mg/dL (2.5-4.9); POTASSIUM 3.6 mmol/L (3.5-5.1); TOTAL PROTEIN, SERUM 6.2 g/dL (6.4-8.2); UREA NITROGEN, BLOOD 60 mg/dL (7-18)
[2016-12-30] MEDS: PIPERACILLIN/TAZOBACTAM/D5W 2.25 G in PREMIXED 1 EACH IV SCH ×3 (05:27→21:15)
--- NOTE | 2016-12-30 06:05 | NUR ---
Per MD order, pt placed on CPAP with pressure support of 8 and peep +5. RN Ligia aware and notified. Pt appears to be tolerating weaning well, no signs of respiratory distress noted at this time. Will continue to monitor pt closely.
--- NOTE | 2016-12-30 06:10 | NUR ---
Noted pt to tolerate CPAP mode well but has increased ectopics on bus driver/monitor. Will continue to observe closely. Respirations easy and regular; maintaining excellent sats. Remains with stable VS off Levophed since 1000 yesterday. Nursing comfort measures maintained. No family inquiries this shift. Please see CCU flowsheet for trends and clinical data.
--- NOTE | 2016-12-30 07:15 | NUR ---
Pt re'd on schilling vent with current weaning settings of cpap 5 ps8 with abg's to be drawn this am. Pt is orally intubated with a 7.5 ETT secured 23cm at the lip line. No sign of distress noted at this time, pt tolerating vent settings well. Oral care performed. Suctioned pt with small amount of yellowish secretions. Vent alarms audible checked and reset. Will continue to monitor pt throughout shift.
[2016-12-30 07:26] LABS: ABG BASE EXCESS 0.4 mmol/L; ABG HCO3 24.5 mmol/L; ABG PCO2 37.9 mmHg (35.0-45.0); ABG PH 7.428 (7.350-7.450); ABG SITE RIGHT BRACHIAL; ABG TOTAL HEMOGLOBIN 13.8 G/dL (13.5-18.0); COHb 1.1 % (0.5-1.5); CPAP,BG 5 cmH20; MetHb 0.3 % (0.0-1.5); O2Hb 97.8 % (94.0-97.0); VENT MODE VENT - CPAP5 PS8; VT, ABG 449 mL
--- NOTE | 2016-12-30 08:10 | NUR ---
Pt.was seen by with new orders.
--- NOTE | 2016-12-30 08:40 | NUR ---
PT PLACED BACK TO PREVIOUS SETTINGS PER MD ORDER WITH WEANING ORDERS FOR AM.
--- NOTE | 2016-12-30 08:55 | NUR ---
Pt.was seen by .
[2016-12-30] MEDS: ASPIRIN 300 MG RECTAL SUPP RC SCH (08:58)
[2016-12-30] MEDS: FAMOTIDINE. 20 MG/2 ML VIAL IV SCH (08:58)
[2016-12-30] MEDS ORDERED: DILTIAZEM HCL CD 120 MG CAP.SR.24H PO SCH (11:15)
[2016-12-30] MEDS ORDERED: Z GUARD REMEDY PASTE 57 GM TUBE TOP PRN (13:15)
--- NOTE | 2016-12-30 13:16 | NUR ---
WOUND CARE CONSULT: PT PRESENTS WITH CRUSTED WOUND TO LEFT EAR AND SACRAL DEEP TISSUE IN EVOLUTION, PRESENT ON ADMISSION. PT IS INTUBATED AND IMMOBILE, ON FIRST STEP MATTRESS. ALL SKIN PROTECTION MEASURES IN PLACE. ALL WOUND AND SKIN RECOMMENDATIONS DISCUSSED WITH NURSING STAFF. WILL SEE PRN. DOE IN AGREEMENT WITH PLAN OF CARE. Addendum: 12/30/16 at 1317 by GI FONTANEZ RN Amended: Links added.
[2016-12-30] MEDS: MORPHINE SULFATE 4 MG/1 ML DISP.SYRIN IV PRN ×2 (14:01→23:47)
[2016-12-30] MEDS: Z GUARD REMEDY PASTE 57 GM TUBE TOP SCH ×2 (14:02→21:15)
[2016-12-30] MEDS: BACITRACIN/POLYMYXIN B OINT 15 GM TUBE TOP SCH (14:33)
--- NOTE | 2016-12-30 16:30 | NUR ---
Daughter at bedside updated with pt.condition and plan of care.
--- NOTE | 2016-12-30 18:45 | NUR ---
PT.WAS SEEN BY PUMP ASSEMBLER:APOLONIA.NO CHANGES IN PT.CONDITION,NO S/S OF DISTRESS.
--- NOTE | 2016-12-30 19:37 | NUR ---
PT ON CONT MIRANDA VENT WITH 7.5 ET/TUBE IN [id number] LIP LINE, PT DOES ASSIST AT TIMES, GOOD , FAIR COUGH EFFORT, SUCTION MOUTH, PT WITH SAME CURRENT VENT SETTINGS, A/C 12, VT 600ML, 30%, PEEP 5,NO VENT CHANGES MADE AT THIS TIME, ALL ALARMS OK, AMBU BAG AT BEDSIDE. Felton STOREYP Addendum: 12/30/16 at 1939 by LUIS BATRES RT Amended: Links added.
--- NOTE | 2016-12-30 20:00 | NUR ---
Resting in bed; drowsy but arouses to voice and tactile stimuli. Does not follow commands. Remains intubated on vent; appears comfortable on current settings. Plan to do another CPAP trial in AM. Stable VS and rhythm. Heplock to right femoral TLC, no infusions. Nursing comfort measures observed at all times. Oral care and HOB up per VAP protocol. Turned/positioned q 2hr and PRN. Please see CCU flowsheet for full assessment and clinical data.
[2016-12-31] VITALS (30 sets, daily range): BP systolic 106–168; BP diastolic 66–112
--- NOTE | 2016-12-31 00:30 | NUR ---
Required IV Morphine one dose for max. comfort. Nursing comfort measures observed at all times.
[2016-12-31 04:48] LABS: BASOPHILS # (AUTO) 0.1 K/uL (0.0-8.0); BASOPHILS % (AUTO) 0.6 % (0.0-2.0); EOSINOPHILS # (AUTO) 0.1 K/uL (0.0-0.7); EOSINOPHILS % (AUTO) 0.5 % (0.0-7.0); HEMATOCRIT 42.1 % (40-50); HEMOGLOBIN 13.9 G/DL (14.0-18.0); LYMPHOCYTES # (AUTO) 2.5 K/UL (0.8-4.8); LYMPHOCYTES % (AUTO) 20.7 % (20.5-51.5); MEAN CORPUSCULAR HEMOGLOBIN 30.4 UUG (27.0-31.0); MEAN CORPUSCULAR HGB CONC 33 g/dL (32.0-37.0); MEAN CORPUSCULAR VOLUME 92.2 FL (82.0-92.0); MONOCYTES # (AUTO) 0.5 K/UL (0.1-1.30); MONOCYTES % (AUTO) 4.5 % (0.0-11.0); NEUTROPHILS # (AUTO) 8.9 K/UL (1.8-8.9); NEUTROPHILS % (AUTO) 73.7 % (38.5-71.5); PLATELET COUNT (AUTO) 237 K/UL (150-450); RED BLOOD CELL COUNT(AUTO) 4.57 MIL/UL (4.7-6.1); WHITE BLOOD COUNT (AUTO) 12.1 K/UL (4.0-11.2)
[2016-12-31 04:59] LABS: CARBON DIOXIDE 29 mmol/L (21-32); CHLORIDE 121 mmol/L (98-107); CREATININE 2.4 mg/dL (0.6-1.3); GLUCOSE 131 mg/dL (74-106); MAGNESIUM 2.3 mg/dL (1.8-2.4); PHOSPHOROUS 3.2 mg/dL (2.5-4.9); POTASSIUM 3.7 mmol/L (3.5-5.1); UREA NITROGEN, BLOOD 58 mg/dL (7-18)
[2016-12-31] MEDS: PIPERACILLIN/TAZOBACTAM/D5W 2.25 G in PREMIXED 1 EACH IV SCH ×3 (05:40→21:06)
--- NOTE | 2016-12-31 06:00 | NUR ---
Placed pt on CPAP mode by RT. Pt comfortable and in no apparent acute distress. Continues to saturate 97 to 98%. Continue to monitor closely. ABGs due 0900. HOB up 30 degrees at all times. Please see CCU flowsheet for trends and clinical data.
[2016-12-31 07:21] LABS: ABG BASE EXCESS 0.1 mmol/L; ABG HCO3 24.5 mmol/L; ABG PCO2 39.1 mmHg (35.0-45.0); ABG PH 7.414 (7.350-7.450); ABG PO2 101.1 mmHg (75.0-100.0); ABG SITE RIGHT BRACHIAL; COHb 1.4 % (0.5-1.5); CPAP,BG 4 cmH20; MetHb 0.1 % (0.0-1.5); O2Hb 96.5 % (94.0-97.0); VENT MODE CPAP
[2016-12-31] MEDS ORDERED: DC PROPOFOL ONCE EXTUBATED XX PRN (08:00)
[2016-12-31] MEDS: FAMOTIDINE. 20 MG/2 ML VIAL IV SCH (08:06)
[2016-12-31] MEDS: ASPIRIN 300 MG RECTAL SUPP RC SCH (08:06)
[2016-12-31] MEDS: BACITRACIN/POLYMYXIN B OINT 15 GM TUBE TOP SCH (08:07)
[2016-12-31] MEDS: Z GUARD REMEDY PASTE 57 GM TUBE TOP SCH ×2 (08:09→21:06)
--- NOTE | 2016-12-31 08:28 | NUR ---
PT EXTUBATED AT 0820. DR. ORTIZ AT BEDSIDE. PT PLACED ON 3L NASAL CANNULA, PT IN NO SIGNS OF RESPIRATORY DISTRESS. SPO2 95%. RN NOTIFIED.
[2016-12-31] MEDS: hydrALAZINE HCL 20 MG/1 ML VIAL IV PRN ×2 (10:47→21:31)
--- NOTE | 2016-12-31 13:30 | NUR ---
Patient tolerating extubation without problem respiration remain regular and even adequate depth and rate patient remains non verbal unable to follow simple commands. Patient suctioned nasally small amount of burden secretions recovered
--- NOTE | 2016-12-31 18:22 | NUR ---
Patient bathed linin changed oral care done patient repositioned in bed MD updated with patient's status Patient remains Afib on monitor peripheral pulses palpable bilat chest expansion
[2016-12-31] MEDS: POTASSIUM CHLORIDE 10 MEQ in IV D5 1/2 NS 1000 ML 1,000 ML IV PRN ×2 (18:38→22:59)
--- NOTE | 2016-12-31 19:30 | NUR ---
received tolerating oxygen nasal cannula at 3 l/min with on and off productive cough , suction patient via mouth .oral care done . no respiratory distress noted rr s 18 saturation 96%. Addendum: 12/31/16 at 2237 by PAVITHRA POOLE RN Amended: Links added.
--- NOTE | 2016-12-31 22:00 | NUR ---
turned and reposition patient ,offload back with pillows. upper and lower extremities elevated with pillows ,heels off bed . scds used to bilateral lower extremities . special step 1 mattress used.
[2016-12-31] MEDS: ALBUTEROL SULFATE 2.5 MG/3 ML NEBU NEB PRN (23:22)
[2017-01-01] VITALS (26 sets, daily range): BP systolic 98–150; BP diastolic 58–89
--- NOTE | 2017-01-01 00:48 | NUR ---
kept patient npo, for swallow evaluation in am .aspiration precaution observed.hob up . Addendum: 01/01/17 at 0051 by PAVITHRA POOLE RN Amended: Links added.
--- NOTE | 2017-01-01 04:15 | NUR ---
am care done bath patient ,changed soiled linens and gown . applied z guard to sacral area,placed Mepilex . lotion applied upper and lower dry skin . lower and upper extremities elevated with pillows .heels off bed . scds used and special step 1 mattress used.hob up.oral care done and Costelol care done.
[2017-01-01] MEDS: PIPERACILLIN/TAZOBACTAM/D5W 2.25 G in PREMIXED 1 EACH IV SCH ×2 (05:08→13:58)
[2017-01-01 05:12] LABS: ALANINE AMINOTRANSFERASE 23 U/L (16-63); ALKALINE PHOSPHATASE 64 U/L (50-136); ASPARTATE AMINOTRANSFERASE 16 U/L (15-37); BILIRUBIN,TOTAL 0.6 mg/dL (0.2-1.0); CARBON DIOXIDE 29 mmol/L (21-32); CHLORIDE 121 mmol/L (98-107); GLUCOSE 189 mg/dL (74-106); MAGNESIUM 2.2 mg/dL (1.8-2.4); PHOSPHOROUS 2.7 mg/dL (2.5-4.9); POTASSIUM 3.4 mmol/L (3.5-5.1); TOTAL PROTEIN, SERUM 6.4 g/dL (6.4-8.2); UREA NITROGEN, BLOOD 48 mg/dL (7-18)
[2017-01-01 05:53] LABS: BASOPHILS % (AUTO) 0.1 % (0.0-2.0); EOSINOPHILS # (AUTO) 0.2 K/uL (0.0-0.7); EOSINOPHILS % (AUTO) 1.4 % (0.0-7.0); HEMATOCRIT 43.5 % (40-50); HEMOGLOBIN 14.3 G/DL (14.0-18.0); LYMPHOCYTES % (AUTO) 16.2 % (20.5-51.5); MEAN CORPUSCULAR HEMOGLOBIN 30.1 UUG (27.0-31.0); MEAN CORPUSCULAR HGB CONC 33 g/dL (32.0-37.0); MEAN CORPUSCULAR VOLUME 91.7 FL (82.0-92.0); MONOCYTES # (AUTO) 0.7 K/UL (0.1-1.30); MONOCYTES % (AUTO) 5.4 % (0.0-11.0); NEUTROPHILS # (AUTO) 9.4 K/UL (1.8-8.9); NEUTROPHILS % (AUTO) 76.9 % (38.5-71.5); PLATELET COUNT (AUTO) 262 K/UL (150-450); RED BLOOD CELL COUNT(AUTO) 4.75 MIL/UL (4.7-6.1); WHITE BLOOD COUNT (AUTO) 12.3 K/UL (4.0-11.2)
--- NOTE | 2017-01-01 07:10 | NUR ---
report received from Shelley NEGRETE, 86yr old male was admitted to the Critical Care Unit for CHF, resp failure and elevated troponin, also needing intubation. was extubated yesterday and currently on 3lnc. patient moans to pain but is nonverbal, lethargic. has an IV fluid at 100 ml/hr of D5 1/2 NS via right femoral tlc. cantu catheter intact has adequate utine output. ekg is atrial fib flutter controlled rate with occasional pvcs. bp stable but needing apresoline past 24 hrs for sbp>160. Addendum: 01/01/17 at 1016 by SHA PEREZ RN Amended: Links added.
[2017-01-01 08:03] LABS: ABG BASE EXCESS 1.4 mmol/L; ABG PCO2 36.5 mmHg (35.0-45.0); ABG PH 7.454 (7.350-7.450); ABG PO2 104.1 mmHg (75.0-100.0); ABG SITE RIGHT BRACHIAL; ABG TOTAL HEMOGLOBIN 15.1 G/dL (13.5-18.0); COHb 1.1 % (0.5-1.5); MetHb 0.2 % (0.0-1.5); VENT MODE Nasal Cannula
[2017-01-01] MEDS: POTASSIUM CHLORIDE 10 MEQ in IV D5 1/2 NS 1000 ML 1,000 ML IV PRN (09:28)
[2017-01-01] MEDS: FAMOTIDINE. 20 MG/2 ML VIAL IV SCH (09:34)
[2017-01-01] MEDS: ASPIRIN 300 MG RECTAL SUPP RC SCH (09:34)
[2017-01-01] MEDS: Z GUARD REMEDY PASTE 57 GM TUBE TOP SCH ×2 (09:34→20:35)
[2017-01-01] MEDS: BACITRACIN/POLYMYXIN B OINT 15 GM TUBE TOP SCH (09:35)
--- NOTE | 2017-01-01 10:18 | NUR ---
seen by dr Bonilla, Pulmonary. condition report given Addendum: 01/01/17 at 1018 by SHA PEREZ RN Amended: Links added.
[2017-01-01] MEDS: POTASSIUM CHLORIDE 50 ML IV SCH ×2 (10:55→11:54)
--- NOTE | 2017-01-01 11:18 | NUR ---
seen by dr mercado. orders received Addendum: 01/01/17 at 1118 by SHA PEREZ RN Amended: Patricia schultz. Addendum: 01/01/17 at 1125 by SHA PERZE RN Amended: Patricia schultz.
--- NOTE | 2017-01-01 11:19 | NUR ---
seen by dr kan, orders received. Addendum: 01/01/17 at 1125 by SHA PEREZ RN Amended: Links added.
--- NOTE | 2017-01-01 11:48 | NUR ---
speech therapy here. patient unable vs refusing to open mouth. see ST notes and recommendations Addendum: 01/01/17 at 1149 by SHA PEREZ RN Amended: Links added.
[2017-01-01] MEDS: POTASSIUM CHLORIDE 10 MEQ in IV D5W 1000ML 1,000 ML IV PRN (13:07)
[2017-01-01] MEDS ORDERED: HYDROMORPHONE 1 MG/1 ML DISP.SYRIN IV PRN (14:00)
--- NOTE | 2017-01-01 14:27 | NUR ---
spoke to dr jess og failed swallow eval and need for nutrition. orders received. Addendum: 01/01/17 at 1427 by SHA PEREZ RN Amended: Links added.
[2017-01-01] MEDS ORDERED: CLONIDINE HCL 0.1 MG TABLET NG PRN (14:30)
[2017-01-01] MEDS ORDERED: NORMAL SALINE FLUSH 10 ML DISP.SYRIN IV PRN (14:45)
--- NOTE | 2017-01-01 15:00 | NUR ---
lillie tatum #16 inserted via left nare. placement auscultated and placement confirmed with an abd xray. Addendum: 01/01/17 at 1924 by SHA PEREZ RN Amended: Links added. Addendum: 01/01/17 at 1927 by SHA PEREZ RN Amended: Links added.
--- NOTE | 2017-01-01 16:00 | NUR ---
kept at 1 ln nc. noted desat on room air while bathing patient. Addendum: 01/01/17 at 1928 by SHA PEREZ RN Amended: Links added.
--- NOTE | 2017-01-01 17:03 | NUR ---
PT IS A 86 YEAR OLD MALE WHO IS ADMITTED W/ CHF, PHYSICAL ASSESSMENT DID NOT SUGGEST ANY OVERT S/S OF MALNUTRITION. SPOKE TO DAUGHTER AT LENGTH, PT USUALLY IA A GOOD EATER, SEEMED TO BE VERY CONGESTED DURING TIME OF VISIT. PER DAUGHTER POOR NUTRITION FOR ABOUT COUPLE WEEKS. HYPERNATREMIA NOTED,HYPERGLYCEMIA (NO HX OF DM- LIKELY R/T ACUTE CLINICAL CONDITION), ELEVATED WBC,MILDLY ELEVATED BUN/Cr- WILL CONTINUE TO MONITOR NO PRESSURE INJURIES , NORMAL BOWEL SOUNDS PRESENT- INITIATE TF NUTREN 1.5 10 CCS/ HR X 22, INCREASE BY 10 CCS Q 6 TO GOAL RATE OF 60 CCS TO PROVIDE 1980 KCAL IN 1320 MLS VOLUME OF FORMULA. FLUSH TUBE W/ 100CCS WATER Q 6 HRS MONITOR LYTES AND TOLERANCE RD WILL F/U Addendum: 01/01/17 at [address] Amended: Links added.
[2017-01-01] MEDS: NUTREN 1.5 1000ML BAG GT PRN (17:39)
--- NOTE | 2017-01-01 18:00 | NUR ---
started on tube fdg of nutren 1.5 at 10ml/hr via ngt left nare Addendum: 01/01/17 at 1921 by SHA PEREZ RN Amended: Links added. Addendum: 01/01/17 at 1924 by SHA PEREZ RN Amended: Links added. Addendum: 01/01/17 at 8 by SHA PEREZ RN Amended: Links added.
--- NOTE | 2017-01-01 19:29 | NUR ---
report given to Jerri RN Addendum: 01/01/17 at 1933 by SHA PEREZ RN Amended: Links added.
--- NOTE | 2017-01-01 21:05 | NUR ---
Pt is noted in bed alert, responsive but nonverbal as report is received from the off going nurse , Pt remain A.FIB on the Tele monitor, Diminished lungs sound with 02 1Liter Nasal Cannula , Skin dry, warm with old area to coccyx, both Ears , left Knee and left Shine. He is NPO with NG-Tube in place as feeding Nutrent 1.5 is at 10ml/hr with a goal off 60ml/hr and to increased Q8HRS by 10ml to reach goal. He is also IVF D5W+10MEQ at 100ML/HR and started on Antibiotic Rocephin 1g Q24HRS and Central Line Triple Lumen Cath noted to Right Femoral as Costello cath remain place. His care continue as pt is now Marisol/Tele status while monitor closely.
[2017-01-01] MEDS: CEFTRIAXONE 1 G in IV DEXTROSE 5% 50 ML IV SCH (21:36)
[2017-01-01] MEDS: NORMAL SALINE FLUSH 10 ML DISP.SYRIN IV SCH (21:37)
--- NOTE | 2017-01-01 23:30 | NUR ---
Pt is noted resting with call light in reach and fall , Aspiration precautions in place as he is been medicated as ordered, turn and repositions as needed. His care continue with IVF, Feeding infusing as ordered while his care continue with A.FIB on the Tele monitor and 02 1liter Nasal Cannula therpy in progress.
[2017-01-02] VITALS (12 sets, daily range): BP systolic 106–159; BP diastolic 59–96
[2017-01-02] MEDS: POTASSIUM CHLORIDE 10 MEQ in IV D5W 1000ML 1,000 ML IV PRN ×2 (00:42→13:51)
--- NOTE | 2017-01-02 02:00 | NUR ---
Pt remain more alert, responsive with NG-Tube in place as feeding infusing at 20ml/hr as feeding increased as ordered with no s/s off distress. His care continue while monitor.
--- NOTE | 2017-01-02 04:00 | NUR ---
Pt is sleeping with no s/s off distress as 02 1liter Nasal Cannula in place , IVF and feeding infusing as ordered. His care continue with AM care given and Costello cath in place while he is been turn, reposition Q2hrs for comfort.
[2017-01-02 05:32] LABS: BASOPHILS # (AUTO) 0.1 K/uL (0.0-8.0); BASOPHILS % (AUTO) 0.8 % (0.0-2.0); EOSINOPHILS # (AUTO) 0.2 K/uL (0.0-0.7); EOSINOPHILS % (AUTO) 1.8 % (0.0-7.0); HEMATOCRIT 44.2 % (40-50); HEMOGLOBIN 14.5 G/DL (14.0-18.0); LYMPHOCYTES # (AUTO) 1.9 K/UL (0.8-4.8); LYMPHOCYTES % (AUTO) 15.1 % (20.5-51.5); MEAN CORPUSCULAR HEMOGLOBIN 30.7 UUG (27.0-31.0); MEAN CORPUSCULAR HGB CONC 33 g/dL (32.0-37.0); MEAN CORPUSCULAR VOLUME 93.7 FL (82.0-92.0); MONOCYTES # (AUTO) 0.6 K/UL (0.1-1.30); MONOCYTES % (AUTO) 4.4 % (0.0-11.0); NEUTROPHILS # (AUTO) 9.8 K/UL (1.8-8.9); NEUTROPHILS % (AUTO) 77.9 % (38.5-71.5); PLATELET COUNT (AUTO) 261 K/UL (150-450); RED BLOOD CELL COUNT(AUTO) 4.72 MIL/UL (4.7-6.1); WHITE BLOOD COUNT (AUTO) 12.6 K/UL (4.0-11.2)
[2017-01-02 05:44] LABS: CARBON DIOXIDE 30 mmol/L (21-32); CHLORIDE 119 mmol/L (98-107); CREATININE 1.9 mg/dL (0.6-1.3); GLUCOSE 200 mg/dL (74-106); PHOSPHOROUS 2.7 mg/dL (2.5-4.9); POTASSIUM 3.6 mmol/L (3.5-5.1); UREA NITROGEN, BLOOD 36 mg/dL (7-18)
--- NOTE | 2017-01-02 06:00 | NUR ---
Pt remain alert, responsive , full code with CAMPBELL/TELE status , IVF, Feeding infusing as ordered and Antibiotic IVPB therapy in progress as Costello cath and Triple Lumen Central line Cath in place as his care continue while monitor.
[2017-01-02] MEDS: NORMAL SALINE FLUSH 10 ML DISP.SYRIN IV SCH ×3 (06:17→21:44)
--- NOTE | 2017-01-02 07:32 | NUR ---
Pt remain full code with CAMPBELL/TELE status alert, responsive as report is given to the receiving nurse.
[2017-01-02] MEDS: BACITRACIN/POLYMYXIN B OINT 15 GM TUBE TOP SCH (09:00)
[2017-01-02] MEDS: ASPIRIN 300 MG RECTAL SUPP RC SCH (09:00)
[2017-01-02] MEDS: FAMOTIDINE. 20 MG/2 ML VIAL IV SCH (09:00)
[2017-01-02] MEDS: Z GUARD REMEDY PASTE 57 GM TUBE TOP SCH ×2 (09:00→21:42)
--- NOTE | 2017-01-02 09:00 | NUR ---
report given to Rosie NEGRETE. Patient telemetry status since 01/01/17 Addendum: 01/02/17 at 0955 by SHA PEREZ RN Amended: Links added.
--- NOTE | 2017-01-02 09:30 | NUR ---
RECEIVED PATIENT FROM CAMPBELL/TELE UNIT. PATIENT TOLERATED TRANSFER WELL, VITALS WNL, ALL PATIENT NEEDS MET, BED IN LOW POSITION, SIDE RAILS UP X2, 1ST STEP MATTRESS SECURED.
--- NOTE | 2017-01-02 10:43 | NUR ---
DIRECTOR GAME: Discharge plan Spoke to Dr. Willoughby this morning. Patient will be discharged tomorrow to [facility]. Spoke to AJ in charge of admissions and patient will go to room 18B.
[2017-01-02] MEDS ORDERED: DILTIAZEM HCL CD 120 MG CAP.SR.24H PO SCH (10:45)
[2017-01-02] MEDS: DILTIAZEM HCL 60 MG TABLET NG SCH ×2 (11:36→21:41)
--- NOTE | 2017-01-02 12:00 | NUR ---
INCREASED TUBE FEEDING TO 30CC/HR
--- NOTE | 2017-01-02 13:00 | NUR ---
PATIENT'S FAMILY NOTIFIED DURING HER VISIT THAT PAT[facility] WILL [facility]. PATIENT WAS VERY UPSET THAT THIS WAS NOT DISCUSSED WITH HER. DAUGHTER PROVIDED ADVANCE DIRECTIVES AND NEEDS TO DISCUSS DISCHARGE WITH MINE LABORER. DAUGHTER DOES NOT WANT FATHER TO GO TO REHAB AND WANTS HIM TO RETURN TO BOARD AND CARE. NOTIFIED CHARGE NURSE TO PASS ON TO ONCOMING CHARGE NURSE.
--- NOTE | 2017-01-02 18:42 | NUR ---
PATIENT IS IN BED, NO EVIDENCE OF DISTRESS NOTED. BED IN LOW POSITION, SIDE RAILS UP X2, BED ALARM ON. PATIENT TOLERATING OXYGEN 1L WELL, HEART RHYTHM IS A-FLUTTER AND HEART RATE IS 87.
--- NOTE | 2017-01-02 21:00 | NUR ---
RECEIVED PATIENT COMFORTABLE IN BED, NON-VERBAL AND DROWSY BUT AROUSABLE TO NAME AND TOUCH. ON NC 1L 02 SAT AT 93%. UNABLE TO COUGH OUT NEB GIVEN AND SUCTIONED BY RT. ON NG TUBE FEEDING NUTREN TITRATED RATE ACCORDINGLY, NO GASTRIC RESIDUALS NOTED. ON IV FLUIDS ART FEMORAL CATH MAINTAINED RATE ORDERED. AGUAYO IN PLACED DRAINING CLEAR YELLOW COLOR URINE. NOTED AREAS OF SORE ON LEFT EAR AND CHEEK TURNED FROM SIDE TO SIDE. STAGE 2 SCARAL SORE ALSO NOTED. OTHERWISE PATIENT IS NOT ON RESPIRATORY DISTRESS. VITAL SIGNS ARE STABLE. A. FIB ON TELE. KEPT SAFE AND MONITORED.
[2017-01-02] MEDS: CEFTRIAXONE 1 G in IV DEXTROSE 5% 50 ML IV SCH (21:41)
[2017-01-02] MEDS: ALBUTEROL SULFATE 2.5 MG/3 ML NEBU NEB PRN (22:42)
[2017-01-03] VITALS: BP 113/64
[2017-01-03] MEDS: NUTREN 1.5 1000ML BAG GT PRN (03:18)
[2017-01-03 04:00] VITALS: BP 145/78
[2017-01-03] MEDS: NORMAL SALINE FLUSH 10 ML DISP.SYRIN IV SCH ×2 (06:28→14:00)
--- NOTE | 2017-01-03 06:44 | NUR ---
PATIENT SLEPT INTERMITTENTLY THRU THE NIGHT A. FIB ON TELE. VITAL SIGNS ARE STABLE, REPOSITIONED IN BED EVERY 3 HRS. OTHERWISE PATIENT IS STABLE NO RESPIRATORY DISTRESS NOTED,
[2017-01-03 08:26] LABS: ALANINE AMINOTRANSFERASE 34 U/L (16-63); ALKALINE PHOSPHATASE 79 U/L (50-136); ASPARTATE AMINOTRANSFERASE 31 U/L (15-37); BASOPHILS % (AUTO) 0.5 % (0.0-2.0); BILIRUBIN,TOTAL 0.3 mg/dL (0.2-1.0); CARBON DIOXIDE 24 mmol/L (21-32); CHLORIDE 113 mmol/L (98-107); CREATININE 1.5 mg/dL (0.6-1.3); EOSINOPHILS # (AUTO) 0.2 K/uL (0.0-0.7); EOSINOPHILS % (AUTO) 2.1 % (0.0-7.0); GLUCOSE 223 mg/dL (74-106); HEMATOCRIT 41.6 % (36.7-47.1); HEMOGLOBIN 13.9 g/dL (12.5-16.3); LYMPHOCYTES # (AUTO) 2.2 K/uL (20.0-40.0); LYMPHOCYTES % (AUTO) 21.7 % (20.5-51.5); MEAN CORPUSCULAR HEMOGLOBIN 30.6 uug (23.8-33.4); MEAN CORPUSCULAR HGB CONC 33 g/dL (32.5-36.3); MEAN CORPUSCULAR VOLUME 91.7 fL (73.0-96.2); MONOCYTES # (AUTO) 0.7 K/uL (2.0-10.0); MONOCYTES % (AUTO) 6.5 % (0.0-11.0); NEUTROPHILS # (AUTO) 7.2 K/uL (1.8-8.9); NEUTROPHILS % (AUTO) 69.2 % (38.5-71.5); PHOSPHOROUS 2.6 mg/dL (2.5-4.9); PLATELET COUNT (AUTO) 281 K/uL (152-348); POTASSIUM 3.9 mmol/L (3.5-5.1); RED BLOOD CELL COUNT(AUTO) 4.54 MIL/uL (4.06-5.63); UREA NITROGEN, BLOOD 31 mg/dL (7-18); WHITE BLOOD COUNT (AUTO) 10.3 K/uL (3.6-10.2)
[2017-01-03] MEDS: FAMOTIDINE. 20 MG/2 ML VIAL IV SCH (09:00)
[2017-01-03] MEDS: BACITRACIN/POLYMYXIN B OINT 15 GM TUBE TOP SCH (09:00)
[2017-01-03] MEDS: DILTIAZEM HCL 60 MG TABLET NG SCH (09:00)
[2017-01-03] MEDS ORDERED: ASPIRIN 81 MG TAB.CHEW NG SCH (09:00)
[2017-01-03] MEDS: Z GUARD REMEDY PASTE 57 GM TUBE TOP SCH (09:00)
[2017-01-03] MEDS ORDERED: ASPI81TA31 NG (09:15)
[2017-01-03] MEDS ORDERED: MENT71OI TOP (09:15)
[2017-01-03] MEDS ORDERED: NUTR250L61 GT (09:15)
[2017-01-03 11:52] VITALS: BP 140/88
[2017-01-03 15:48] VITALS: BP 146/72
[2017-01-03] MEDS: ALBUTEROL SULFATE 2.5 MG/3 ML NEBU NEB PRN (15:54)
[2017-01-03 20:00] VITALS: BP 116/78
--- NOTE | 2017-01-03 21:10 | NUR ---
PATIENT DISCHARGED AND TRANSFERRED TO [facility] BY AMBULANCE. DURING DISCHARGE WITH AMBULANCE, PATIENT IN STABLE CONDITION, NO S/S OF DISTRESS. NO FALLS NOTED. TRIPLE LUMEN CATHETER LEFT IN PLACE BECAUSE PATIENT RECEIVING ANTIBIOTICS AT [facility]. NG-TUBE ALSO LEFT IN PLACE. PATIENT DISCHARGED AND TRANSFERRED OUT BY AMBULANCE SAFELY.
== END 2017-01-03 21:26 | DRG 871 ==
LOC: ER 19:00 → CCU 21:20 → TELE 01-02 09:20 → MED 01-03 10:58
PROVIDERS: ADMIT Internal Medicine Nephrology; ATTEND Internal Medicine
PROC: 5A1945Z Respiratory Ventilation, 24-96 Consecutive Hours (ICD-10-PCS; principal; 2016-12-27)
PROC: 0BH17EZ Insertion of Endotracheal Airway into Trachea, Via Natural or Artificial Opening (ICD-10-PCS; 2016-12-27)
PROC: 06HM33Z Insertion of Infusion Device into Right Femoral Vein, Percutaneous Approach (ICD-10-PCS; 2016-12-28)
PROC: 0DH67UZ Insertion of Feeding Device into Stomach, Via Natural or Artificial Opening (ICD-10-PCS; 2017-01-01)
PROC: 3E0G76Z Introduction of Nutritional Substance into Upper GI, Via Natural or Artificial Opening (ICD-10-PCS; 2017-01-01)
DX: A41.9 Sepsis, unspecified organism (principal); J96.01 Acute respiratory failure with hypoxia; I21.A1 Myocardial infarction type 2; R65.21 Severe sepsis with septic shock; J15.3 Pneumonia due to streptococcus, group B; D68.59 Other primary thrombophilia; I50.33 Acute on chronic diastolic (congestive) heart failure; G92 Toxic encephalopathy; E87.2 Acidosis; N17.9 Acute kidney failure, unspecified; I13.0 Hypertensive heart and chronic kidney disease with heart failure and stage 1 through stage 4 chronic kidney disease, or unspecified chronic kidney disease; I69.354 Hemiplegia and hemiparesis following cerebral infarction affecting left non-dominant side; E87.0 Hyperosmolality and hypernatremia; I48.92 Unspecified atrial flutter; I27.20 Pulmonary hypertension, unspecified; N18.3 Chronic kidney disease, stage 3 (moderate); E78.5 Hyperlipidemia, unspecified; E03.9 Hypothyroidism, unspecified; K21.9 Gastro-esophageal reflux disease without esophagitis; M10.9 Gout, unspecified; N40.0 Benign prostatic hyperplasia without lower urinary tract symptoms; R31.0 Gross hematuria; I48.2 Chronic atrial fibrillation; Z79.01 Long term (current) use of anticoagulants; Z87.01 Personal history of pneumonia (recurrent); Z86.711 Personal history of pulmonary embolism; I69.320 Aphasia following cerebral infarction; F03.90 Unspecified dementia, unspecified severity, without behavioral disturbance, psychotic disturbance, mood disturbance, and anxiety; I08.2 Rheumatic disorders of both aortic and tricuspid valves; I87.2 Venous insufficiency (chronic) (peripheral); Z79.899 Other long term (current) drug therapy; Z79.82 Long term (current) use of aspirin; Z91.81 History of falling
CPT/HCPCS: 36415; 36600; 70030-TC; 71010; 74000; 83605; 83735; 84100; 85025; 87040; 87070; 87077; 87086; 92526; 92610; 93005; 93307; 94002; 94003; 94640; 94664; A4663; C1751; J0330; J0360; J0696; J0713; J1450; J1644; J1940; J2270; J2543; J3370; J3475; J3480; J3490; J7030; J7040; J7050; J7060; J7070